=== PATIENT | female | born 1935 | race African-American/Black ===

== ENCOUNTER 2022-11-11 09:08 | Inpatient (IN) | payer OTHER ==
[2022-11-11] MEDS ORDERED: ONDANSETRON 4 MG/2 ML VIAL IVPUSH ONE (10:18)
[2022-11-11] MEDS ORDERED: ACETAMINOPHEN 1000 MG/100 ML BAG IVPB ONE ×2 (10:18→22:06)
[2022-11-11] MEDS ORDERED: ACETAMINOPHEN INJECTION 100 ML IVPB ONE ×2 (10:25→22:05)
[2022-11-11] MEDS ORDERED: ONDANSETRON 4 MG/2 ML VIAL ONE ×2 (10:25→22:05)
[2022-11-11 11:19] LABS: EPI CELLS 8 /uL (0-25.1); HYALINE CASTS 0 /uL (0-3.1); PH,URINE 6.5 (5.0-8.0); URINE APPEARANCE CLEAR; URINE BACTERIA 7 /uL (0-1359); URINE BILIRUBIN NEGATIVE (NEGATIVE); URINE COLOR YELLOW; URINE GLUCOSE (UA) NEGATIVE (NEGATIVE); URINE KETONE NEGATIVE (NEGATIVE); URINE LEUK ESTERASE NEGATIVE (NEGATIVE); URINE NITRITE NEGATIVE (NEGATIVE); URINE PROTEIN 1+ (NEGATIVE); URINE RBC 11 /uL (0-23.9); URINE UROBILINOGEN 0.2 mg/dL (0.2-1.0); URINE WBC 13 /uL (0-25.8)
[2022-11-11] MEDS ORDERED: HYDROmorphone HCl 2 MG/ML VIAL IVPUSH STA ×2 (11:23→15:14)
[2022-11-11] MEDS ORDERED: HYDROmorphone HCl 2 MG/ML VIAL ONE ×3 (11:27→18:29)
[2022-11-11 11:30] LABS: HEMATOCRIT 25.1 % (32.4-45.2); HEMOGLOBIN 7.6 GM/dL (10.7-15.3); MCH 24.1 pg (25.7-33.7); MCHC 30.2 g/dl (32.0-36.0); MEAN CELL VOLUME 79.9 fl (80-96); MEAN PLT VOLUME 10.5 fl (7.5-11.1); PLATELET COUNT 204 10^3/uL (134-434); RBC 3.15 M/mm3 (3.60-5.2); RDW 16.5 % (11.6-15.6); WHITE BLOOD COUNT 7.8 K/mm3 (4.0-10.0)
[2022-11-11 11:39] LABS: INR 0.96 (0.83-1.09); PROTHROMBIN TIME (PATIENT) 11.1 SEC (9.7-13.0)
[2022-11-11 11:40] LABS: ACTIVATED PTT 24.3 SECONDS (25.2-36.5)
[2022-11-11 12:17] LABS: BLOOD UREA NITROGEN 48.9 mg/dL (7-18)
[2022-11-11 12:20] LABS: CALCIUM 9.6 mg/dL (8.5-10.1)
[2022-11-11 12:21] LABS: BILIRUBIN,TOTAL 0.3 mg/dL (0.2-1); CREATININE 3.5 mg/dL (0.55-1.3); TOT PROT 7.9 g/dl (6.4-8.2)
[2022-11-11 12:22] LABS: ANISOCYTOSIS 0; HELMET CELLS 0; HOWELL-JOLLY BODIES 0; MACROCYTOSIS 0; OVALOCYTE 0; ROULEAU 0; SICKELED CELLS 0; TARGET CELLS 0; TEAR DROP CELLS 0; TOXIC GRANULATION 0
[2022-11-11] MEDS ORDERED: SODIUM CHLORIDE 1,000 ML IV STA (13:42)
[2022-11-11] MEDS: HYDROmorphone HCl 2 MG/ML VIAL IVPUSH PRN (18:37)
[2022-11-11] MEDS: D5-1/2NS+20 MEQ KCL - 20 MEQ/1,000 ML INFUS.BAG IV SCH (20:00)
[2022-11-11] MEDS ORDERED: HEPARIN NA (PORCINE) 5,000 UNITS/ML 1ML VIAL ONE (22:05)
[2022-11-11] MEDS: HEPARIN NA (PORCINE) 5,000 UNITS/ML 1ML VIAL SQ SCH (22:12)
[2022-11-11] MEDS: ONDANSETRON 4 MG/2 ML VIAL IVPUSH PRN (22:12)
[2022-11-11] MEDS ORDERED: SENNOSIDES/DOCUSATE COMBO (SENNA PLUS) TABLET (UD) PO ONE (22:40)
[2022-11-12] MEDS ORDERED: HYDROmorphone HCl 2 MG/ML VIAL ONE (01:22)
[2022-11-12] MEDS: HYDROmorphone HCl 2 MG/ML VIAL IVPUSH PRN ×2 (01:30→05:56)
[2022-11-12] MEDS: HEPARIN NA (PORCINE) 5,000 UNITS/ML 1ML VIAL SQ SCH ×3 (06:00→22:28)
[2022-11-12] MEDS ORDERED: HYDROmorphone HCl 2 MG/ML VIAL IVPB PRN ×2 (06:03→20:01)
[2022-11-12] MEDS ORDERED: MINERAL OIL ENEMA 133 ML ENEMA RC ONE ×2 (09:40→10:00)
[2022-11-12] MEDS ORDERED: PEG 3350/NA SULF BICARB CL/KCL 4000 ML SOLN.RECON PO ONE (11:00)
[2022-11-12 12:24] LABS: POTASSIUM 5.6 mmol/L (3.5-5.1)
[2022-11-12 12:31] LABS: ALBUMIN 3.3 g/dl (3.4-5.0); BLOOD UREA NITROGEN 46.6 mg/dL (7-18); CALCIUM 9.1 mg/dL (8.5-10.1); MAGNESIUM 2.1 mg/dL (1.8-2.4)
[2022-11-12 12:34] LABS: CREATININE 2.8 mg/dL (0.55-1.3)
[2022-11-12 12:36] LABS: BILIRUBIN,TOTAL 0.7 mg/dL (0.2-1); TOT PROT 7.2 g/dl (6.4-8.2)
[2022-11-12] MEDS: D5-1/2NS+20 MEQ KCL - 20 MEQ/1,000 ML INFUS.BAG IV SCH (15:19)
[2022-11-12] MEDS: ACETAMINOPHEN 325 MG TABLET (FP) PO PRN (16:06)
[2022-11-12] MEDS: DEXTROSE 5%-0.45% SALINE 1,000 ML IV SCH (16:09)
[2022-11-12] MEDS: ONDANSETRON 4 MG/2 ML VIAL IVPUSH PRN (16:13)
[2022-11-12 16:21] LABS: HEMATOCRIT 27.2 % (32.4-45.2); HEMOGLOBIN 8.3 GM/dL (10.7-15.3); MCHC 30.5 g/dl (32.0-36.0); MEAN PLT VOLUME 9.2 fl (7.5-11.1); PLATELET COUNT 178 10^3/uL (134-434); RBC 3.45 M/mm3 (3.60-5.2); RDW 16.6 % (11.6-15.6); WHITE BLOOD COUNT 11.5 K/mm3 (4.0-10.0)
[2022-11-12] MEDS ORDERED: ACETAMINOPHEN 1000 MG/100 ML BAG IVPB ONE (18:03)
[2022-11-13] MEDS: DEXTROSE 5%-0.45% SALINE 1,000 ML IV SCH (05:04)
[2022-11-13] MEDS: HEPARIN NA (PORCINE) 5,000 UNITS/ML 1ML VIAL SQ SCH ×2 (05:05→21:46)
[2022-11-13] MEDS: ACETAMINOPHEN 325 MG TABLET (FP) PO PRN (06:40)
[2022-11-13 09:53] LABS: HEMATOCRIT 23.4 % (32.4-45.2); HEMOGLOBIN 7.3 GM/dL (10.7-15.3); MCH 24.5 pg (25.7-33.7); MCHC 31.2 g/dl (32.0-36.0); MEAN CELL VOLUME 78.3 fl (80-96); MEAN PLT VOLUME 9.3 fl (7.5-11.1); PLATELET COUNT 158 10^3/uL (134-434); RBC 2.99 M/mm3 (3.60-5.2); WHITE BLOOD COUNT 9.2 K/mm3 (4.0-10.0)
[2022-11-13 10:11] LABS: POTASSIUM 4.5 mmol/L (3.5-5.1)
[2022-11-13 10:17] LABS: ALBUMIN 2.7 g/dl (3.4-5.0); BLOOD UREA NITROGEN 42.3 mg/dL (7-18); CALCIUM 8.6 mg/dL (8.5-10.1)
[2022-11-13 10:21] LABS: CREATININE 2.5 mg/dL (0.55-1.3)
[2022-11-13 10:23] LABS: BILIRUBIN,TOTAL 0.6 mg/dL (0.2-1)
[2022-11-13] MEDS ORDERED: CEFTRIAXONE 1 GM in DEXTROSE 5%-WATER - 50 ML IVPB SCH (11:15)
[2022-11-13 11:24] LABS: ERYTHROCYTE SEDIMENTATION RATE 38 mm/hr (0-30)
[2022-11-13] MEDS ORDERED: SODIUM CHLORIDE 1,000 ML IV SCH ×3 (11:30→17:22)
[2022-11-13] MEDS ORDERED: ACETAMINOPHEN 1000 MG/100 ML BAG IVPB ONE ×3 (12:00→16:45)
[2022-11-13] MEDS ORDERED: BUPIVACAINE HCL/PF 0.25% (2.5MG/ML) 10 ML VIAL ONE (12:30)
[2022-11-13] MEDS ORDERED: INDOCYANINE GREEN 25 MG/10 ML VIAL IVPUSH ONE (12:55)
[2022-11-13] MEDS ORDERED: PROPOFOL 20 ML ONE (13:29)
[2022-11-13] MEDS ORDERED: ROCURONIUM BROMIDE 50 MG/5 ML SYRINGE ONE ×3 (13:30→15:38)
[2022-11-13] MEDS ORDERED: PIPERACILLIN/TAZOBACTAM 3.375 GM VIAL IVPB ONE ×2 (14:39→14:43)
[2022-11-13] MEDS ORDERED: HYDROmorphone HCl 2 MG/ML VIAL ONE (15:20)
[2022-11-13] MEDS ORDERED: SUGAMMADEX SODIUM 200 MG/2 ML VIAL ONE (15:54)
[2022-11-13] MEDS ORDERED: ONDANSETRON 4 MG/2 ML VIAL ONE (16:21)
[2022-11-13] MEDS ORDERED: ACETAMINOPHEN INJECTION 100 ML IVPB ONE (16:44)
[2022-11-13] MEDS ORDERED: HYDROmorphone *PCA* 10MG/50ML DISP.SYRIN PCA SCH (16:45)
[2022-11-13] MEDS ORDERED: LACTATED RINGERS SOLUTION 1,000 ML IV SCH (16:45)
[2022-11-13] MEDS ORDERED: HYDROmorphone *PCA* 10MG/50ML DISP.SYRIN ONE (17:05)
[2022-11-13] MEDS ORDERED: ONDANSETRON 4 MG/2 ML VIAL IVPUSH PRN (17:22)
[2022-11-13] MEDS: HYDROmorphone *PCA* 10MG/50ML DISP.SYRIN PCA SCH (19:00)
[2022-11-13 20:22] LABS: HEMATOCRIT 36.4 % (32.4-45.2); HEMOGLOBIN 11.4 GM/dL (10.7-15.3); MCHC 31.3 g/dl (32.0-36.0); MEAN CELL VOLUME 80.1 fl (80-96); MEAN PLT VOLUME 9.4 fl (7.5-11.1); PLATELET COUNT 172 10^3/uL (134-434); RBC 4.54 M/mm3 (3.60-5.2); RDW 16.4 % (11.6-15.6); WHITE BLOOD COUNT 8.1 K/mm3 (4.0-10.0)
[2022-11-13 20:24] LABS: POTASSIUM 4.7 mmol/L (3.5-5.1)
[2022-11-13 20:25] LABS: ALBUMIN 2.5 g/dl (3.4-5.0); CALCIUM 8.9 mg/dL (8.5-10.1)
[2022-11-13 20:27] LABS: BLOOD UREA NITROGEN 43.1 mg/dL (7-18)
[2022-11-13 20:29] LABS: CREATININE 2.6 mg/dL (0.55-1.3)
[2022-11-13 20:31] LABS: BILIRUBIN,TOTAL 1.2 mg/dL (0.2-1); TOT PROT 5.6 g/dl (6.4-8.2)
[2022-11-13 21:18] LABS: ANISOCYTOSIS 1+; MACROCYTOSIS 0; OVALOCYTE 1+
[2022-11-13] MEDS: MUPIROCIN 2% TOPICAL OINTMENT FOR DECOLONIZATION NS SCH (21:46)
[2022-11-13] MEDS ORDERED: MUPIROCIN 2% TOPICAL OINTMENT FOR DECOLONIZATION NS SCH ×2 (22:00)
[2022-11-13] MEDS ORDERED: CHLORHEXIDINE GLUCONATE 4% CLEANSER FOR DECOLONIZATION TP SCH ×2 (22:00)
[2022-11-13] MEDS: PIPERACILLIN/TAZOB 3.375 GM 3.375 GM in DEXTROSE 5%-WATER - 50 ML IVPB SCH (22:35)
[2022-11-13] MEDS: CHLORHEXIDINE GLUCONATE 4% CLEANSER FOR DECOLONIZATION TP SCH (22:36)
[2022-11-14] MEDS: PIPERACILLIN/TAZOB 3.375 GM 3.375 GM in DEXTROSE 5%-WATER - 50 ML IVPB SCH ×2 (02:55→09:16)
[2022-11-14] MEDS: HEPARIN NA (PORCINE) 5,000 UNITS/ML 1ML VIAL SQ SCH ×3 (06:04→21:43)
[2022-11-14 07:25] LABS: POTASSIUM 5.2 mmol/L (3.5-5.1)
[2022-11-14 07:29] LABS: BLOOD UREA NITROGEN 43.3 mg/dL (7-18); CALCIUM 8.6 mg/dL (8.5-10.1)
[2022-11-14 07:30] LABS: ALBUMIN 2.2 g/dl (3.4-5.0)
[2022-11-14 07:33] LABS: CREATININE 2.7 mg/dL (0.55-1.3)
[2022-11-14 07:34] LABS: BILIRUBIN,TOTAL 0.7 mg/dL (0.2-1); TOT PROT 5.2 g/dl (6.4-8.2)
[2022-11-14 07:54] LABS: BASO % 0.2 % (0-2.0); EOS % 0.1 % (0-4.5); HEMATOCRIT 32.4 % (32.4-45.2); HEMOGLOBIN 10.2 GM/dL (10.7-15.3); LYMPH % 7.3 % (8-40); MCH 25.2 pg (25.7-33.7); MCHC 31.6 g/dl (32.0-36.0); MEAN CELL VOLUME 79.7 fl (80-96); MEAN PLT VOLUME 9.3 fl (7.5-11.1); MONO % 4.4 % (3.8-10.2); PLATELET COUNT 153 10^3/uL (134-434); RBC 4.06 M/mm3 (3.60-5.2); RDW 16.8 % (11.6-15.6); WHITE BLOOD COUNT 7.4 K/mm3 (4.0-10.0)
[2022-11-14] MEDS ORDERED: LEVOTHYROXINE SODIUM 100 MCG 5 ML VIAL IVPUSH ONE ×2 (08:00)
[2022-11-14] MEDS ORDERED: ACETAMINOPHEN 1000 MG/100 ML BAG IVPB PRN (08:00)
[2022-11-14] MEDS: DEXTROSE 5%-NORMAL SALINE 1,000 ML IV SCH (09:15)
[2022-11-14] MEDS: PANTOPRAZOLE SODIUM 40 MG VIAL IVPUSH SCH (09:16)
[2022-11-14] MEDS: MUPIROCIN 2% TOPICAL OINTMENT FOR DECOLONIZATION NS SCH ×2 (09:17→22:05)
[2022-11-14] MEDS: PIPERACILLIN/TAZOB 2.25 GM 2.25 GM in DEXTROSE 5%-WATER - 50 ML IVPB SCH ×2 (15:14→21:43)
[2022-11-14] MEDS: HYDROmorphone *PCA* 10MG/50ML DISP.SYRIN PCA SCH (19:00)
[2022-11-14] MEDS ORDERED: ONDANSETRON 4 MG/2 ML VIAL IVPUSH PRN (19:54)
[2022-11-14] MEDS: SODIUM CHLORIDE 1,000 ML IV SCH (21:45)
[2022-11-14] MEDS: CHLORHEXIDINE GLUCONATE 4% CLEANSER FOR DECOLONIZATION TP SCH (22:05)
[2022-11-15] MEDS: PIPERACILLIN/TAZOB 2.25 GM 2.25 GM in DEXTROSE 5%-WATER - 50 ML IVPB SCH ×4 (03:19→21:07)
[2022-11-15] MEDS: HEPARIN NA (PORCINE) 5,000 UNITS/ML 1ML VIAL SQ SCH ×3 (06:18→21:08)
[2022-11-15] MEDS: DEXTROSE 5%-NORMAL SALINE 1,000 ML IV SCH (08:24)
[2022-11-15] MEDS: MUPIROCIN 2% TOPICAL OINTMENT FOR DECOLONIZATION NS SCH ×2 (09:17→22:00)
[2022-11-15] MEDS: PANTOPRAZOLE SODIUM 40 MG VIAL IVPUSH SCH (09:18)
[2022-11-15 12:31] LABS: BASO % 0.1 % (0-2.0); EOS % 1.9 % (0-4.5); HEMATOCRIT 29.9 % (32.4-45.2); HEMOGLOBIN 9.3 GM/dL (10.7-15.3); MCH 25.1 pg (25.7-33.7); MEAN PLT VOLUME 8.9 fl (7.5-11.1); MONO % 4.6 % (3.8-10.2); NEUT % 87.4 % (42.8-82.8); PLATELET COUNT 184 10^3/uL (134-434); RBC 3.69 M/mm3 (3.60-5.2); RDW 16.6 % (11.6-15.6); WHITE BLOOD COUNT 8.3 K/mm3 (4.0-10.0)
[2022-11-15 12:49] LABS: POTASSIUM 4.5 mmol/L (3.5-5.1)
[2022-11-15 12:53] LABS: ALBUMIN 2.2 g/dl (3.4-5.0); BLOOD UREA NITROGEN 39.5 mg/dL (7-18)
[2022-11-15 12:55] LABS: CREATININE 2.6 mg/dL (0.55-1.3)
[2022-11-15 12:57] LABS: BILIRUBIN,TOTAL 0.6 mg/dL (0.2-1); TOT PROT 5.4 g/dl (6.4-8.2)
[2022-11-15] MEDS: HYDROmorphone *PCA* 10MG/50ML DISP.SYRIN PCA SCH (20:51)
[2022-11-15] MEDS: SODIUM CHLORIDE 1,000 ML IV SCH (21:07)
[2022-11-15] MEDS: CHLORHEXIDINE GLUCONATE 4% CLEANSER FOR DECOLONIZATION TP SCH (22:00)
[2022-11-16] MEDS: PIPERACILLIN/TAZOB 2.25 GM 2.25 GM in DEXTROSE 5%-WATER - 50 ML IVPB SCH ×4 (02:12→21:07)
[2022-11-16] MEDS: HEPARIN NA (PORCINE) 5,000 UNITS/ML 1ML VIAL SQ SCH ×3 (07:37→21:07)
[2022-11-16] MEDS: PANTOPRAZOLE SODIUM 40 MG VIAL IVPUSH SCH (09:11)
[2022-11-16] MEDS: DEXTROSE 5%-NORMAL SALINE 1,000 ML IV SCH (09:40)
[2022-11-16] MEDS: ACETAMINOPHEN 1000 MG/100 ML BAG IVPB SCH ×3 (10:39→20:43)
[2022-11-16] MEDS: MUPIROCIN 2% TOPICAL OINTMENT FOR DECOLONIZATION NS SCH ×2 (10:40→21:07)
[2022-11-16] MEDS: DOCUSATE SODIUM 100 MG CAPSULE (FP) PO SCH ×2 (14:13→21:07)
[2022-11-16] MEDS: traMADol HCL 50 MG TABLET PO PRN (20:44)
[2022-11-16] MEDS: CHLORHEXIDINE GLUCONATE 4% CLEANSER FOR DECOLONIZATION TP SCH (21:07)
[2022-11-17] MEDS: PIPERACILLIN/TAZOB 2.25 GM 2.25 GM in DEXTROSE 5%-WATER - 50 ML IVPB SCH ×4 (02:12→21:36)
[2022-11-17] MEDS: ACETAMINOPHEN 1000 MG/100 ML BAG IVPB SCH (02:12)
[2022-11-17] MEDS: HEPARIN NA (PORCINE) 5,000 UNITS/ML 1ML VIAL SQ SCH ×4 (06:04→21:36)
[2022-11-17] MEDS: DOCUSATE SODIUM 100 MG CAPSULE (FP) PO SCH ×3 (06:04→21:36)
[2022-11-17] MEDS: traMADol HCL 50 MG TABLET PO PRN (07:52)
[2022-11-17 08:00] LABS: POTASSIUM 3.9 mmol/L (3.5-5.1)
[2022-11-17 08:05] LABS: ALBUMIN 2.1 g/dl (3.4-5.0); BLOOD UREA NITROGEN 30.8 mg/dL (7-18); CALCIUM 8.9 mg/dL (8.5-10.1)
[2022-11-17 08:08] LABS: CREATININE 2.3 mg/dL (0.55-1.3)
[2022-11-17 08:10] LABS: TOT PROT 5.2 g/dl (6.4-8.2)
[2022-11-17 08:11] LABS: BILIRUBIN,TOTAL 0.3 mg/dL (0.2-1)
[2022-11-17 08:23] LABS: HEMATOCRIT 27.1 % (32.4-45.2); HEMOGLOBIN 8.3 GM/dL (10.7-15.3); MCH 24.8 pg (25.7-33.7); MCHC 30.7 g/dl (32.0-36.0); MEAN CELL VOLUME 80.8 fl (80-96); MEAN PLT VOLUME 9.1 fl (7.5-11.1); PLATELET COUNT 207 10^3/uL (134-434); RBC 3.36 M/mm3 (3.60-5.2); RDW 15.9 % (11.6-15.6); WHITE BLOOD COUNT 6.3 K/mm3 (4.0-10.0)
[2022-11-17] MEDS: PANTOPRAZOLE SODIUM 40 MG VIAL IVPUSH SCH (09:13)
[2022-11-17] MEDS: DEXTROSE 5%-NORMAL SALINE 1,000 ML IV SCH (09:17)
[2022-11-17] MEDS: MUPIROCIN 2% TOPICAL OINTMENT FOR DECOLONIZATION NS SCH (09:17)
[2022-11-17] MEDS: ACETAMINOPHEN 500 MG TABLET (FP) PO SCH ×3 (10:41→21:37)
[2022-11-17] MEDS: HYDROmorphone *PCA* 10MG/50ML DISP.SYRIN PCA SCH (14:45)
[2022-11-18] MEDS: traMADol HCL 50 MG TABLET PO PRN ×2 (02:30→16:30)
[2022-11-18] MEDS: PIPERACILLIN/TAZOB 2.25 GM 2.25 GM in DEXTROSE 5%-WATER - 50 ML IVPB SCH ×2 (02:30→09:59)
[2022-11-18] MEDS: ACETAMINOPHEN 500 MG TABLET (FP) PO SCH ×4 (04:36→21:40)
[2022-11-18] MEDS: DOCUSATE SODIUM 100 MG CAPSULE (FP) PO SCH ×3 (05:51→21:14)
[2022-11-18] MEDS: HEPARIN NA (PORCINE) 5,000 UNITS/ML 1ML VIAL SQ SCH ×3 (05:51→21:16)
[2022-11-18] MEDS ORDERED: PIPERACILLIN/TAZOBACTAM 2.25 GM VIAL IVPB ONE (09:09)
[2022-11-18] MEDS: DEXTROSE 5%-NORMAL SALINE 1,000 ML IV SCH (11:28)
[2022-11-18] MEDS: PANTOPRAZOLE SODIUM 40 MG VIAL IVPUSH SCH (12:03)
[2022-11-19] MEDS: ACETAMINOPHEN 500 MG TABLET (FP) PO SCH ×3 (04:12→10:14)
[2022-11-19] MEDS: HEPARIN NA (PORCINE) 5,000 UNITS/ML 1ML VIAL SQ SCH ×3 (05:56→21:40)
[2022-11-19] MEDS: DOCUSATE SODIUM 100 MG CAPSULE (FP) PO SCH ×3 (05:56→21:40)
[2022-11-19] MEDS: traMADol HCL 50 MG TABLET PO PRN (06:20)
[2022-11-19] MEDS: DEXTROSE 5%-NORMAL SALINE 1,000 ML IV SCH ×2 (07:08→19:45)
[2022-11-19 08:18] LABS: HEMATOCRIT 33.3 % (32.4-45.2); HEMOGLOBIN 10.7 GM/dL (10.7-15.3); MCH 25.5 pg (25.7-33.7); MEAN CELL VOLUME 79.5 fl (80-96); MEAN PLT VOLUME 8.4 fl (7.5-11.1); PLATELET COUNT 335 10^3/uL (134-434); RBC 4.19 M/mm3 (3.60-5.2); RDW 15.9 % (11.6-15.6); WHITE BLOOD COUNT 7.4 K/mm3 (4.0-10.0)
[2022-11-19 08:30] LABS: POTASSIUM 3.9 mmol/L (3.5-5.1)
[2022-11-19 08:32] LABS: CALCIUM 9.5 mg/dL (8.5-10.1)
[2022-11-19 08:33] LABS: BLOOD UREA NITROGEN 22.8 mg/dL (7-18)
[2022-11-19 08:36] LABS: CREATININE 2.1 mg/dL (0.55-1.3)
[2022-11-19 08:37] LABS: TOT PROT 6.4 g/dl (6.4-8.2)
[2022-11-19 08:38] LABS: BILIRUBIN,TOTAL 0.4 mg/dL (0.2-1)
[2022-11-19 08:44] LABS: ALBUMIN 2.5 g/dl (3.4-5.0)
[2022-11-19] MEDS: PANTOPRAZOLE SODIUM 40 MG VIAL IVPUSH SCH (10:02)
[2022-11-19] MEDS: ONDANSETRON 4 MG/2 ML VIAL IVPB SCH ×4 (10:02→21:39)
[2022-11-19 12:31] VITALS: BMI 26.1
[2022-11-19] MEDS ORDERED: METOCLOPRAMIDE HCL INJECTION 10 MG/2 ML VIAL IVPB SCH (14:00)
[2022-11-19] MEDS ORDERED: ONDANSETRON 4 MG/2 ML VIAL IVPB PRN (23:00)
[2022-11-20] MEDS ORDERED: ACETAMINOPHEN 1000 MG/100 ML BAG IVPB ONE ×2 (02:39→07:56)
[2022-11-20] MEDS: DOCUSATE SODIUM 100 MG CAPSULE (FP) PO SCH ×3 (06:47→22:10)
[2022-11-20] MEDS: HEPARIN NA (PORCINE) 5,000 UNITS/ML 1ML VIAL SQ SCH ×3 (06:47→22:10)
[2022-11-20] MEDS: LEVOTHYROXINE NA 125 MCG TABLET (FP) PO SCH (06:47)
[2022-11-20] MEDS: ONDANSETRON *ODT* 4 MG TABLET SL PRN ×2 (08:00→16:45)
[2022-11-20] MEDS: traMADol HCL 50 MG TABLET PO PRN ×2 (13:30→22:08)
[2022-11-20] MEDS ORDERED: ACETAMINOPHEN 500 MG TABLET (FP) PO ONE ×2 (16:24)
[2022-11-20 22:26] VITALS: RESP 20
[2022-11-21] MEDS: ACETAMINOPHEN 500 MG TABLET (FP) PO SCH ×4 (02:03→17:30)
[2022-11-21] MEDS: DOCUSATE SODIUM 100 MG CAPSULE (FP) PO SCH ×3 (05:36→22:07)
[2022-11-21] MEDS: HEPARIN NA (PORCINE) 5,000 UNITS/ML 1ML VIAL SQ SCH ×3 (05:36→22:07)
[2022-11-21] MEDS: LEVOTHYROXINE NA 125 MCG TABLET (FP) PO SCH (06:32)
[2022-11-21] MEDS: traMADol HCL 50 MG TABLET PO PRN ×2 (09:45→22:18)
[2022-11-22] MEDS: ACETAMINOPHEN 500 MG TABLET (FP) PO SCH ×4 (00:41→12:10)
[2022-11-22] MEDS: HEPARIN NA (PORCINE) 5,000 UNITS/ML 1ML VIAL SQ SCH (06:35)
[2022-11-22] MEDS: DOCUSATE SODIUM 100 MG CAPSULE (FP) PO SCH (06:36)
[2022-11-22] MEDS: LEVOTHYROXINE NA 125 MCG TABLET (FP) PO SCH (06:36)
[2022-11-22 10:24] LABS: POTASSIUM 4.4 mmol/L (3.5-5.1)
[2022-11-22 10:26] LABS: CALCIUM 9.7 mg/dL (8.5-10.1)
[2022-11-22 10:27] LABS: ALBUMIN 2.8 g/dl (3.4-5.0); BLOOD UREA NITROGEN 27.8 mg/dL (7-18)
[2022-11-22 10:30] LABS: CREATININE 2.2 mg/dL (0.55-1.3)
[2022-11-22 10:32] LABS: BILIRUBIN,TOTAL 0.3 mg/dL (0.2-1); TOT PROT 6.8 g/dl (6.4-8.2)
[2022-11-22 14:03] VITALS: BP 145/86; PULSE 77; TEMP 9.3
== END 2022-11-22 14:09 | DRG 329 ==
LOC: JER 09:08 → JERBED 16:51 → J5S 11-12 02:24 → J2C 11-13 15:48 → JICU 11-13 18:30 → J8W 11-17 13:51
PROVIDERS: ADMIT Family Medicine; ATTEND Family Medicine
PROC: 0DTG0ZZ Resection of Left Large Intestine, Open Approach (ICD-10-PCS; principal; 2022-11-13 12:00)
PROC: 0D1L0Z4 Bypass Transverse Colon to Cutaneous, Open Approach (ICD-10-PCS; 2022-11-13 12:00)
DX: K43.4 Parastomal hernia with gangrene (principal); K56.2 Volvulus; K55.8 Other vascular disorders of intestine; N17.9 Acute kidney failure, unspecified; F05 Delirium due to known physiological condition; E78.5 Hyperlipidemia, unspecified; I12.9 Hypertensive chronic kidney disease with stage 1 through stage 4 chronic kidney disease, or unspecified chronic kidney disease; N18.9 Chronic kidney disease, unspecified; D64.9 Anemia, unspecified; R11.2 Nausea with vomiting, unspecified; K59.00 Constipation, unspecified; E03.9 Hypothyroidism, unspecified; Z53.31 Laparoscopic surgical procedure converted to open procedure; Z93.3 Colostomy status
CPT/HCPCS: 36415; 36430; 74018-TC-FY; 74176-TC; 80053; 81003; 82570; 82728; 82962; 83540; 83550; 83605; 83690; 83735; 84300; 84439; 84443; 85025; 85027; 85610; 85651; 85730; 86140; 86850; 86900; 86901; 87086; 87635; 88307-TC; 93005; 93010; 93306-TC; 94760; 97116-GP; 97161-GP; 99285-25; J1644; P9038; P9058; Q0162

== ENCOUNTER 2022-11-24 03:24 | Inpatient (IN) | payer OTHER ==
[2022-11-24] MEDS ORDERED: ONDANSETRON 4 MG/2 ML VIAL IVPUSH ONE (03:41)
[2022-11-24] MEDS ORDERED: ACETAMINOPHEN 1000 MG/100 ML BAG IVPB ONE (03:41)
[2022-11-24] MEDS ORDERED: ACETAMINOPHEN INJECTION 100 ML IVPB ONE (03:50)
[2022-11-24] MEDS ORDERED: ONDANSETRON 4 MG/2 ML VIAL ONE (03:50)
[2022-11-24 04:15] LABS: HEMOGLOBIN 10.6 GM/dL (10.7-15.3); INR 1.01 (0.83-1.09); MCH 24.9 pg (25.7-33.7); MCHC 31.1 g/dl (32.0-36.0); MEAN CELL VOLUME 80.3 fl (80-96); MEAN PLT VOLUME 7.8 fl (7.5-11.1); PLATELET COUNT 471 10^3/uL (134-434); PROTHROMBIN TIME (PATIENT) 11.7 SEC (9.7-13.0); RBC 4.23 M/mm3 (3.60-5.2); RDW 16.4 % (11.6-15.6); WHITE BLOOD COUNT 14.1 K/mm3 (4.0-10.0)
[2022-11-24 04:18] LABS: ACTIVATED PTT 26.5 SECONDS (25.2-36.5)
[2022-11-24 04:19] LABS: POTASSIUM 4.3 mmol/L (3.5-5.1)
[2022-11-24 04:22] LABS: BLOOD UREA NITROGEN 33.6 mg/dL (7-18); CALCIUM 9.6 mg/dL (8.5-10.1); MAGNESIUM 2.3 mg/dL (1.8-2.4)
[2022-11-24 04:25] LABS: CREATININE 2.3 mg/dL (0.55-1.3)
[2022-11-24 04:26] LABS: BILIRUBIN,TOTAL 0.5 mg/dL (0.2-1)
[2022-11-24 04:27] LABS: TOT PROT 6.9 g/dl (6.4-8.2)
[2022-11-24 05:33] LABS: ANISOCYTOSIS 2+; MACROCYTOSIS 0; OVALOCYTE 2+; TEAR DROP CELLS 1+
[2022-11-24] MEDS ORDERED: SODIUM CHLORIDE 0.9% 500 ML INFUS.BAG IV ONE (06:34)
[2022-11-24] MEDS ORDERED: LEVOTHYROXINE NA 100 MCG TABLET (FP) ONE (11:43)
[2022-11-24] MEDS ORDERED: LEVOTHYROXINE NA 25 MCG TABLET (FP) ONE (11:44)
[2022-11-24] MEDS ORDERED: HYDROmorphone HCl 2 MG/ML VIAL ONE ×2 (11:44→19:10)
[2022-11-24] MEDS: LEVOTHYROXINE NA 125 MCG TABLET (FP) PO SCH (11:53)
[2022-11-24] MEDS: D5-1/2NS+20 MEQ KCL - 20 MEQ/1,000 ML INFUS.BAG IV SCH (11:53)
[2022-11-24] MEDS: HYDROmorphone HCl 2 MG/ML VIAL IVPB PRN ×2 (12:00→19:14)
[2022-11-24] MEDS ORDERED: HEPARIN NA (PORCINE) 5,000 UNITS/ML 1ML VIAL ONE ×2 (13:20→21:28)
[2022-11-24] MEDS: HEPARIN NA (PORCINE) 5,000 UNITS/ML 1ML VIAL SQ SCH ×2 (13:27→21:39)
[2022-11-24] MEDS ORDERED: PIPERACILLIN/TAZOB 2.25 GM 2.25 GM/50 ML BAG IVPB ONE (17:12)
[2022-11-24] MEDS: PIPERACILLIN/TAZOB 2.25 GM 2.25 GM in DEXTROSE 5%-WATER - 50 ML IVPB SCH (17:30)
[2022-11-25] MEDS: PIPERACILLIN/TAZOB 2.25 GM 2.25 GM in DEXTROSE 5%-WATER - 50 ML IVPB SCH ×3 (02:05→17:56)
[2022-11-25 03:13] VITALS: BMI 25.7
[2022-11-25] MEDS ORDERED: ACETAMINOPHEN 1000 MG/100 ML BAG IVPB PRN (05:55)
[2022-11-25] MEDS: HEPARIN NA (PORCINE) 5,000 UNITS/ML 1ML VIAL SQ SCH ×3 (06:30→22:47)
[2022-11-25] MEDS: D5-1/2NS+20 MEQ KCL - 20 MEQ/1,000 ML INFUS.BAG IV SCH ×3 (06:33→18:29)
[2022-11-25] MEDS: LEVOTHYROXINE NA 125 MCG TABLET (FP) PO SCH (07:31)
[2022-11-25] MEDS: metoPROLOL SUCCINATE 25 MG TAB.SR.24H (FP) PO SCH (09:22)
[2022-11-25 09:45] LABS: BASO % 0.2 % (0-2.0); EOS % 0.8 % (0-4.5); HEMATOCRIT 29.5 % (32.4-45.2); HEMOGLOBIN 9.3 GM/dL (10.7-15.3); LYMPH % 5.2 % (8-40); MCH 25.3 pg (25.7-33.7); MCHC 31.7 g/dl (32.0-36.0); MEAN CELL VOLUME 79.9 fl (80-96); MEAN PLT VOLUME 7.7 fl (7.5-11.1); MONO % 6.2 % (3.8-10.2); NEUT % 87.6 % (42.8-82.8); PLATELET COUNT 432 10^3/uL (134-434); RBC 3.69 M/mm3 (3.60-5.2); RDW 16.1 % (11.6-15.6); WHITE BLOOD COUNT 10.1 K/mm3 (4.0-10.0)
[2022-11-25 09:59] LABS: POTASSIUM 4.8 mmol/L (3.5-5.1)
[2022-11-25 10:21] LABS: BILIRUBIN,TOTAL 0.3 mg/dL (0.2-1)
[2022-11-25 10:29] LABS: ALBUMIN 2.7 g/dl (3.4-5.0); CALCIUM 9.2 mg/dL (8.5-10.1)
[2022-11-25 10:30] LABS: MAGNESIUM 2.2 mg/dL (1.8-2.4)
[2022-11-25 10:32] LABS: CREATININE 2.4 mg/dL (0.55-1.3); PHOSPHOROUS 2.9 mg/dL (2.5-4.9)
[2022-11-25 10:33] LABS: TOT PROT 6.4 g/dl (6.4-8.2)
[2022-11-25 10:46] LABS: EPI CELLS 17 /uL (0-25.1); HYALINE CASTS 1 /uL (0-3.1); URINE APPEARANCE CLEAR; URINE BACTERIA 10 /uL (0-1359); URINE BILIRUBIN NEGATIVE (NEGATIVE); URINE COLOR YELLOW; URINE GLUCOSE (UA) NEGATIVE (NEGATIVE); URINE KETONE NEGATIVE (NEGATIVE); URINE LEUK ESTERASE NEGATIVE (NEGATIVE); URINE NITRITE NEGATIVE (NEGATIVE); URINE PROTEIN 2+ (NEGATIVE); URINE RBC 21 /uL (0-23.9); URINE UROBILINOGEN 0.2 mg/dL (0.2-1.0); URINE WBC 20 /uL (0-25.8)
[2022-11-25] MEDS ORDERED: ONDANSETRON 4 MG TABLET PO PRN (15:42)
[2022-11-25] MEDS ORDERED: HYDROmorphone HCl 2 MG/ML VIAL IVPB ONE (15:55)
[2022-11-25] MEDS: ONDANSETRON 4 MG/2 ML VIAL IVPUSH PRN ×2 (16:05→21:45)
[2022-11-25] MEDS: ACETAMINOPHEN 1000 MG/100 ML BAG IVPB PRN ×2 (16:26→22:29)
[2022-11-26] MEDS: PIPERACILLIN/TAZOB 2.25 GM 2.25 GM in DEXTROSE 5%-WATER - 50 ML IVPB SCH ×3 (01:29→18:25)
[2022-11-26] MEDS: ACETAMINOPHEN 1000 MG/100 ML BAG IVPB PRN (03:31)
[2022-11-26] MEDS: D5-1/2NS+20 MEQ KCL - 20 MEQ/1,000 ML INFUS.BAG IV SCH (05:27)
[2022-11-26] MEDS ORDERED: TRIMETHOBENZAMIDE HCL 200MG/2ML INJ IM ONE (05:28)
[2022-11-26] MEDS: HEPARIN NA (PORCINE) 5,000 UNITS/ML 1ML VIAL SQ SCH ×3 (06:05→21:25)
[2022-11-26] MEDS: ONDANSETRON 4 MG/2 ML VIAL IVPUSH PRN ×2 (06:05→09:46)
[2022-11-26] MEDS: LEVOTHYROXINE NA 125 MCG TABLET (FP) PO SCH (06:05)
[2022-11-26 09:36] LABS: HEMATOCRIT 31.4 % (32.4-45.2); HEMOGLOBIN 9.8 GM/dL (10.7-15.3); MCH 25.3 pg (25.7-33.7); MCHC 31.4 g/dl (32.0-36.0); MEAN CELL VOLUME 80.7 fl (80-96); MEAN PLT VOLUME 7.9 fl (7.5-11.1); PLATELET COUNT 513 10^3/uL (134-434); RBC 3.89 M/mm3 (3.60-5.2); RDW 16.3 % (11.6-15.6); WHITE BLOOD COUNT 11.4 K/mm3 (4.0-10.0)
[2022-11-26 09:59] LABS: POTASSIUM 4.9 mmol/L (3.5-5.1)
[2022-11-26] MEDS ORDERED: FAMOTIDINE 20 MG/50 ML IVPB 20 MG/50 ML MG IVPB SCH (10:00)
[2022-11-26 10:06] LABS: ALBUMIN 2.8 g/dl (3.4-5.0); BLOOD UREA NITROGEN 30.3 mg/dL (7-18); CALCIUM 9.4 mg/dL (8.5-10.1)
[2022-11-26 10:09] LABS: CREATININE 2.6 mg/dL (0.55-1.3)
[2022-11-26 10:11] LABS: BILIRUBIN,TOTAL 0.4 mg/dL (0.2-1); TOT PROT 6.8 g/dl (6.4-8.2)
[2022-11-26] MEDS: metoPROLOL SUCCINATE 25 MG TAB.SR.24H (FP) PO SCH (10:23)
[2022-11-26] MEDS: FAMOTIDINE 20 MG/50 ML IVPB 20 MG/50 ML MG IVPB SCH (11:29)
[2022-11-26 12:36] LABS: MAGNESIUM 2.5 mg/dL (1.8-2.4)
[2022-11-26 12:40] LABS: PHOSPHOROUS 2.8 mg/dL (2.5-4.9)
[2022-11-26] MEDS ORDERED: SODIUM CHLORIDE 0.45% 1,000 ML IV SCH (14:15)
[2022-11-26] MEDS: DEXTROSE 5%-NORMAL SALINE 1,000 ML IV SCH (19:21)
[2022-11-27] MEDS: PIPERACILLIN/TAZOB 2.25 GM 2.25 GM in DEXTROSE 5%-WATER - 50 ML IVPB SCH ×3 (01:43→17:28)
[2022-11-27] MEDS: ACETAMINOPHEN 1000 MG/100 ML BAG IVPB PRN ×2 (03:49→09:37)
[2022-11-27] MEDS: HEPARIN NA (PORCINE) 5,000 UNITS/ML 1ML VIAL SQ SCH ×3 (06:24→21:42)
[2022-11-27] MEDS: LEVOTHYROXINE NA 125 MCG TABLET (FP) PO SCH (06:24)
[2022-11-27] MEDS: DEXTROSE 5%-NORMAL SALINE 1,000 ML IV SCH (06:26)
[2022-11-27] MEDS: ONDANSETRON 4 MG/2 ML VIAL IVPUSH PRN (09:37)
[2022-11-27] MEDS: metoPROLOL SUCCINATE 25 MG TAB.SR.24H (FP) PO SCH (09:44)
[2022-11-27 11:00] LABS: BASO % 0.4 % (0-2.0); EOS % 1.1 % (0-4.5); HEMATOCRIT 28.1 % (32.4-45.2); LYMPH % 6.6 % (8-40); MCH 25.8 pg (25.7-33.7); MEAN CELL VOLUME 80.5 fl (80-96); MEAN PLT VOLUME 7.8 fl (7.5-11.1); MONO % 6.9 % (3.8-10.2); PLATELET COUNT 468 10^3/uL (134-434); RBC 3.49 M/mm3 (3.60-5.2); RDW 16.2 % (11.6-15.6)
[2022-11-27 11:29] LABS: POTASSIUM 4.8 mmol/L (3.5-5.1)
[2022-11-27 11:52] LABS: BLOOD UREA NITROGEN 23.5 mg/dL (7-18); CALCIUM 9.2 mg/dL (8.5-10.1); MAGNESIUM 2.3 mg/dL (1.8-2.4)
[2022-11-27 11:55] LABS: CREATININE 2.3 mg/dL (0.55-1.3); PHOSPHOROUS 2.7 mg/dL (2.5-4.9)
[2022-11-27 12:05] LABS: CHOLESTEROL 158 mg/dL (50-200)
[2022-11-27 12:07] LABS: LDL CHOLESTEROL (ONLY SJRH) 60 mg/dL (5-100)
[2022-11-27 12:08] LABS: HDL CHOLESTEROL 77 mg/dL (40-60)
[2022-11-27] MEDS ORDERED: morphine CARPU-JECT 2 MG/1 ML DISP.SYRIN IVPUSH PRN (13:51)
[2022-11-27] MEDS ORDERED: KETOROLAC TROMETHAMINE 30 MG/1 ML VIAL IVPUSH ONE ×3 (14:45→15:15)
[2022-11-27] MEDS: AMINO ACIDS 4.25%/D5W 1,000 ML IV SCH (17:27)
[2022-11-27] MEDS: FAT EMULSION/OLIVE/SOY/PHOSPHO 250 ML IV SCH (21:46)
[2022-11-27] MEDS ORDERED: FAT EMULSION/OLIVE/SOY (CLINOLIPID) 250 ML EMULSION IV SCH (22:00)
[2022-11-28] MEDS: PIPERACILLIN/TAZOB 2.25 GM 2.25 GM in DEXTROSE 5%-WATER - 50 ML IVPB SCH ×3 (01:31→18:58)
[2022-11-28] MEDS: HEPARIN NA (PORCINE) 5,000 UNITS/ML 1ML VIAL SQ SCH ×3 (06:06→22:39)
[2022-11-28] MEDS: AMINO ACIDS 4.25%/D5W 1,000 ML IV SCH ×2 (06:06→20:05)
[2022-11-28] MEDS: LEVOTHYROXINE NA 125 MCG TABLET (FP) PO SCH (06:07)
[2022-11-28] MEDS: DEXTROSE 5%-NORMAL SALINE 1,000 ML IV SCH (08:38)
[2022-11-28] MEDS: ONDANSETRON 4 MG/2 ML VIAL IVPUSH PRN (08:47)
[2022-11-28 09:45] LABS: POTASSIUM 4.1 mmol/L (3.5-5.1)
[2022-11-28 10:33] LABS: BILIRUBIN,TOTAL 0.2 mg/dL (0.2-1)
[2022-11-28 10:35] LABS: CALCIUM 9.2 mg/dL (8.5-10.1)
[2022-11-28 10:36] LABS: ALBUMIN 2.5 g/dl (3.4-5.0); BLOOD UREA NITROGEN 30.1 mg/dL (7-18)
[2022-11-28 10:38] LABS: MAGNESIUM 2.1 mg/dL (1.8-2.4)
[2022-11-28 10:39] LABS: CREATININE 2.1 mg/dL (0.55-1.3)
[2022-11-28] MEDS: FAMOTIDINE 20 MG/50 ML IVPB 20 MG/50 ML MG IVPB SCH (11:00)
[2022-11-28] MEDS: metoPROLOL SUCCINATE 25 MG TAB.SR.24H (FP) PO SCH (14:04)
[2022-11-28] MEDS: PANTOPRAZOLE SODIUM 40 MG VIAL IVPUSH SCH (15:57)
[2022-11-28] MEDS: LEVOTHYROXINE SODIUM 100 MCG 5 ML VIAL IVPUSH SCH (15:57)
[2022-11-28] MEDS: ACETAMINOPHEN 1000 MG/100 ML BAG IVPB PRN (17:26)
[2022-11-28] MEDS: FAT EMULSION/OLIVE/SOY/PHOSPHO 250 ML IV SCH (22:39)
[2022-11-28] MEDS: METOPROLOL TARTRATE 25 MG TABLET (FP) PO SCH (22:49)
[2022-11-29] MEDS: PIPERACILLIN/TAZOB 2.25 GM 2.25 GM in DEXTROSE 5%-WATER - 50 ML IVPB SCH ×3 (01:12→17:53)
[2022-11-29] MEDS: ACETAMINOPHEN 1000 MG/100 ML BAG IVPB PRN (06:58)
[2022-11-29] MEDS: HEPARIN NA (PORCINE) 5,000 UNITS/ML 1ML VIAL SQ SCH ×3 (06:58→22:05)
[2022-11-29] MEDS: AMINO ACIDS 4.25%/D5W 1,000 ML IV SCH ×2 (08:36→22:07)
[2022-11-29] MEDS: PANTOPRAZOLE SODIUM 40 MG VIAL IVPUSH SCH (09:06)
[2022-11-29] MEDS: LEVOTHYROXINE SODIUM 100 MCG 5 ML VIAL IVPUSH SCH (09:07)
[2022-11-29 10:18] LABS: BASO % 0.3 % (0-2.0); EOS % 3.1 % (0-4.5); HEMATOCRIT 27.6 % (32.4-45.2); HEMOGLOBIN 8.6 GM/dL (10.7-15.3); LYMPH % 7.5 % (8-40); MCHC 31.2 g/dl (32.0-36.0); MEAN CELL VOLUME 80.2 fl (80-96); MEAN PLT VOLUME 8.1 fl (7.5-11.1); MONO % 7.5 % (3.8-10.2); NEUT % 81.6 % (42.8-82.8); PLATELET COUNT 407 10^3/uL (134-434); RBC 3.44 M/mm3 (3.60-5.2); RDW 16.4 % (11.6-15.6); WHITE BLOOD COUNT 7.6 K/mm3 (4.0-10.0)
[2022-11-29 10:26] LABS: POTASSIUM 3.8 mmol/L (3.5-5.1)
[2022-11-29 10:39] LABS: CALCIUM 9.3 mg/dL (8.5-10.1)
[2022-11-29 10:40] LABS: ALBUMIN 2.6 g/dl (3.4-5.0); BLOOD UREA NITROGEN 38.8 mg/dL (7-18)
[2022-11-29 10:44] LABS: BILIRUBIN,TOTAL 0.4 mg/dL (0.2-1)
[2022-11-29 10:45] LABS: TOT PROT 6.3 g/dl (6.4-8.2)
[2022-11-29] MEDS: METOPROLOL TARTRATE 25 MG TABLET (FP) PO SCH ×3 (11:48→22:07)
[2022-11-29] MEDS ORDERED: SODIUM PHOSPHATE NR SCH (16:00)
[2022-11-29] MEDS ORDERED: SODIUM CHLORIDE NR SCH (16:00)
[2022-11-29] MEDS ORDERED: [UNRECOGNIZED DRUG - OTHER] NR SCH (16:00)
[2022-11-29] MEDS ORDERED: FOLIC ACID NR SCH (16:00)
[2022-11-29] MEDS: FAT EMULSION/OLIVE/SOY/PHOSPHO 250 ML IV SCH (22:04)
[2022-11-30] MEDS: PIPERACILLIN/TAZOB 2.25 GM 2.25 GM in DEXTROSE 5%-WATER - 50 ML IVPB SCH ×2 (01:34→10:20)
[2022-11-30] MEDS: HEPARIN NA (PORCINE) 5,000 UNITS/ML 1ML VIAL SQ SCH ×3 (05:30→22:18)
[2022-11-30] MEDS: LEVOTHYROXINE SODIUM 100 MCG 5 ML VIAL IVPUSH SCH (10:19)
[2022-11-30] MEDS: PANTOPRAZOLE SODIUM 40 MG VIAL IVPUSH SCH (10:19)
[2022-11-30] MEDS: METOPROLOL TARTRATE 25 MG TABLET (FP) PO SCH ×2 (10:19→22:12)
[2022-11-30] MEDS: FAMOTIDINE 20 MG/50 ML IVPB 20 MG/50 ML MG IVPB SCH (10:20)
[2022-11-30] MEDS: AMINO ACIDS 4.25%/D5W 1,000 ML IV SCH (11:21)
[2022-11-30 11:43] LABS: POTASSIUM 3.3 mmol/L (3.5-5.1)
[2022-11-30 11:49] LABS: ALBUMIN 2.6 g/dl (3.4-5.0); BLOOD UREA NITROGEN 57.1 mg/dL (7-18); CALCIUM 8.7 mg/dL (8.5-10.1)
[2022-11-30 11:50] LABS: MAGNESIUM 1.9 mg/dL (1.8-2.4)
[2022-11-30 11:51] LABS: CREATININE 1.8 mg/dL (0.55-1.3)
[2022-11-30 11:53] LABS: PHOSPHOROUS 2.4 mg/dL (2.5-4.9)
[2022-11-30 11:54] LABS: BILIRUBIN,TOTAL 0.4 mg/dL (0.2-1); TOT PROT 6.2 g/dl (6.4-8.2)
[2022-11-30 11:55] LABS: PREALBUMIN 15.8 mg/dl (20-40)
[2022-11-30] MEDS ORDERED: KCL 10 MEQ IVPB 10 MEQ/100 ML INFUS.BAG IVPB SCH (17:00)
[2022-11-30] MEDS: [UNRECOGNIZED DRUG - OTHER] IV SCH (17:09)
[2022-11-30] MEDS: SODIUM CHLORIDE IV SCH (17:09)
[2022-11-30] MEDS: SODIUM PHOSPHATE IV SCH (17:09)
[2022-11-30] MEDS: POTASSIUM CHLORIDE IV SCH (17:09)
[2022-11-30] MEDS: FAT EMULSION/OLIVE/SOY/PHOSPHO 250 ML IV SCH (22:18)
[2022-11-30] MEDS: ACETAMINOPHEN 1000 MG/100 ML BAG IVPB PRN (23:10)
[2022-12-01] MEDS: HEPARIN NA (PORCINE) 5,000 UNITS/ML 1ML VIAL SQ SCH ×2 (05:44→16:10)
[2022-12-01] MEDS: ACETAMINOPHEN 1000 MG/100 ML BAG IVPB PRN (05:44)
[2022-12-01 10:02] LABS: HEMOGLOBIN 7.7 GM/dL (10.7-15.3); MCH 25.5 pg (25.7-33.7); MCHC 31.9 g/dl (32.0-36.0); MEAN CELL VOLUME 79.9 fl (80-96); MEAN PLT VOLUME 8.2 fl (7.5-11.1); PLATELET COUNT 317 10^3/uL (134-434); RBC 3.01 M/mm3 (3.60-5.2); RDW 16.9 % (11.6-15.6); WHITE BLOOD COUNT 6.2 K/mm3 (4.0-10.0)
[2022-12-01] MEDS: PANTOPRAZOLE SODIUM 40 MG VIAL IVPUSH SCH (10:11)
[2022-12-01] MEDS: LEVOTHYROXINE SODIUM 100 MCG 5 ML VIAL IVPUSH SCH (10:11)
[2022-12-01] MEDS: METOPROLOL TARTRATE 25 MG TABLET (FP) PO SCH ×2 (10:11→22:01)
[2022-12-01 10:24] LABS: POTASSIUM 3.5 mmol/L (3.5-5.1)
[2022-12-01 10:26] LABS: CALCIUM 8.9 mg/dL (8.5-10.1)
[2022-12-01 10:28] LABS: ALBUMIN 2.5 g/dl (3.4-5.0); BLOOD UREA NITROGEN 66.1 mg/dL (7-18); MAGNESIUM 1.8 mg/dL (1.8-2.4)
[2022-12-01 10:31] LABS: CREATININE 1.8 mg/dL (0.55-1.3)
[2022-12-01 10:32] LABS: BILIRUBIN,TOTAL 0.7 mg/dL (0.2-1)
[2022-12-01 10:33] LABS: TOT PROT 6.3 g/dl (6.4-8.2)
[2022-12-01] MEDS ORDERED: [UNRECOGNIZED DRUG - OTHER] IV SCH (16:00)
[2022-12-01] MEDS ORDERED: POTASSIUM CHLORIDE IV SCH (16:00)
[2022-12-01] MEDS ORDERED: SODIUM CHLORIDE IV SCH (16:00)
[2022-12-01] MEDS ORDERED: SODIUM PHOSPHATE IV SCH (16:00)
[2022-12-01] MEDS: [UNRECOGNIZED DRUG - OTHER] IV SCH (16:11)
[2022-12-01] MEDS: SODIUM CHLORIDE IV SCH (16:11)
[2022-12-01] MEDS: SODIUM PHOSPHATE IV SCH (16:11)
[2022-12-01] MEDS: POTASSIUM CHLORIDE IV SCH (16:11)
[2022-12-01] MEDS ORDERED: HEPARIN NA (PORCINE) 5,000 UNITS/ML 1ML VIAL IVPUSH PRN (16:32)
[2022-12-01] MEDS: HEPARIN - 25,000 UNIT in SODIUM CHLORIDE 495 ML IV SCH (18:24)
[2022-12-01] MEDS: FAT EMULSION/OLIVE/SOY/PHOSPHO 250 ML IV SCH (22:04)
[2022-12-02] MEDS: METOPROLOL TARTRATE 25 MG TABLET (FP) PO SCH ×2 (10:06→22:29)
[2022-12-02] MEDS: LEVOTHYROXINE SODIUM 100 MCG 5 ML VIAL IVPUSH SCH (10:44)
[2022-12-02] MEDS: PANTOPRAZOLE SODIUM 40 MG VIAL IVPUSH SCH (10:45)
[2022-12-02] MEDS: FAMOTIDINE 20 MG/50 ML IVPB 20 MG/50 ML MG IVPB SCH (11:18)
[2022-12-02 11:36] LABS: HEMATOCRIT 24.7 % (32.4-45.2); MCH 25.9 pg (25.7-33.7); MCHC 32.5 g/dl (32.0-36.0); MEAN CELL VOLUME 79.7 fl (80-96); MEAN PLT VOLUME 7.6 fl (7.5-11.1); PLATELET COUNT 292 10^3/uL (134-434); RDW 16.9 % (11.6-15.6); WHITE BLOOD COUNT 6.9 K/mm3 (4.0-10.0)
[2022-12-02 11:55] LABS: POTASSIUM 3.7 mmol/L (3.5-5.1)
[2022-12-02 11:58] LABS: MAGNESIUM 1.8 mg/dL (1.8-2.4)
[2022-12-02 11:59] LABS: ALBUMIN 2.6 g/dl (3.4-5.0); CALCIUM 8.9 mg/dL (8.5-10.1)
[2022-12-02 12:00] LABS: BLOOD UREA NITROGEN 59.6 mg/dL (7-18)
[2022-12-02 12:02] LABS: BILIRUBIN,DIRECT 0.2 mg/dL (0.0-0.2); CREATININE 1.5 mg/dL (0.55-1.3); PHOSPHOROUS 3.6 mg/dL (2.5-4.9)
[2022-12-02 12:04] LABS: BILIRUBIN,TOTAL 0.3 mg/dL (0.2-1); TOT PROT 6.5 g/dl (6.4-8.2)
[2022-12-02] MEDS: [UNRECOGNIZED DRUG - OTHER] IV SCH (17:50)
[2022-12-02] MEDS: SODIUM PHOSPHATE IV SCH (17:50)
[2022-12-02] MEDS: SODIUM CHLORIDE IV SCH (17:50)
[2022-12-02] MEDS: POTASSIUM CHLORIDE IV SCH (17:50)
[2022-12-02] MEDS: HEPARIN - 25,000 UNIT in SODIUM CHLORIDE 495 ML IV SCH (17:54)
[2022-12-02] MEDS ORDERED: IRON SUCROSE INJECTION 200 MG in SODIUM CHLORIDE 90 ML IVPB ONE (18:30)
[2022-12-02] MEDS: FAT EMULSION/OLIVE/SOY/PHOSPHO 250 ML IV SCH (22:53)
[2022-12-03 09:52] LABS: HEMATOCRIT 24.6 % (32.4-45.2); HEMOGLOBIN 7.9 GM/dL (10.7-15.3); MCH 26.1 pg (25.7-33.7); MEAN CELL VOLUME 81.3 fl (80-96); MEAN PLT VOLUME 8.2 fl (7.5-11.1); PLATELET COUNT 280 10^3/uL (134-434); RBC 3.03 M/mm3 (3.60-5.2); RDW 16.9 % (11.6-15.6); WHITE BLOOD COUNT 7.5 K/mm3 (4.0-10.0)
[2022-12-03] MEDS: METOPROLOL TARTRATE 25 MG TABLET (FP) PO SCH ×2 (09:54→21:57)
[2022-12-03] MEDS: PANTOPRAZOLE SODIUM 40 MG VIAL IVPUSH SCH (10:07)
[2022-12-03] MEDS: LEVOTHYROXINE SODIUM 100 MCG 5 ML VIAL IVPUSH SCH (10:07)
[2022-12-03 10:22] LABS: POTASSIUM 3.6 mmol/L (3.5-5.1)
[2022-12-03 10:28] LABS: ALBUMIN 2.5 g/dl (3.4-5.0); BLOOD UREA NITROGEN 56.8 mg/dL (7-18)
[2022-12-03 10:30] LABS: CHOLESTEROL 163 mg/dL (50-200); MAGNESIUM 1.7 mg/dL (1.8-2.4)
[2022-12-03 10:31] LABS: LDL CHOLESTEROL (ONLY SJRH) 58 mg/dL (5-100); PHOSPHOROUS 3.4 mg/dL (2.5-4.9)
[2022-12-03 10:32] LABS: CREATININE 1.5 mg/dL (0.55-1.3)
[2022-12-03 10:33] LABS: BILIRUBIN,TOTAL 0.4 mg/dL (0.2-1); TOT PROT 6.4 g/dl (6.4-8.2)
[2022-12-03 10:35] LABS: HDL CHOLESTEROL 92 mg/dL (40-60)
[2022-12-03] MEDS ORDERED: MAGNESIUM 1GM/D5W 100ML - 100 ML IVPB IVPB ONE (11:00)
[2022-12-03] MEDS ORDERED: MAGNESIUM 2GM/50ML STERILE WATER IVPB IVPB ONE (16:17)
[2022-12-03] MEDS ORDERED: MAGNESIUM 1GM/D5W - 1 GM/100 ML IVPB IVPB ONE (17:00)
[2022-12-03] MEDS ORDERED: KETOROLAC TROMETHAMINE 15 MG/ML VIAL IVPUSH ONE ×2 (17:27→19:30)
[2022-12-03] MEDS: POTASSIUM CHLORIDE IV SCH (17:40)
[2022-12-03] MEDS: SODIUM CHLORIDE IV SCH (17:40)
[2022-12-03] MEDS: SODIUM PHOSPHATE IV SCH (17:40)
[2022-12-03] MEDS: [UNRECOGNIZED DRUG - OTHER] IV SCH (17:40)
[2022-12-03] MEDS: HEPARIN - 25,000 UNIT in SODIUM CHLORIDE 495 ML IV SCH (18:47)
[2022-12-03] MEDS: FAT EMULSION/OLIVE/SOY/PHOSPHO 250 ML IV SCH (21:56)
[2022-12-04] MEDS: FAMOTIDINE 20 MG/50 ML IVPB 20 MG/50 ML MG IVPB SCH (10:05)
[2022-12-04] MEDS: METOPROLOL TARTRATE 25 MG TABLET (FP) PO SCH ×2 (10:06→23:23)
[2022-12-04] MEDS: LEVOTHYROXINE SODIUM 100 MCG 5 ML VIAL IVPUSH SCH (10:06)
[2022-12-04] MEDS: PANTOPRAZOLE SODIUM 40 MG VIAL IVPUSH SCH (10:06)
[2022-12-04 11:05] LABS: HEMATOCRIT 23.3 % (32.4-45.2); HEMOGLOBIN 7.4 GM/dL (10.7-15.3); MCH 25.7 pg (25.7-33.7); MCHC 31.7 g/dl (32.0-36.0); MEAN CELL VOLUME 81.1 fl (80-96); MEAN PLT VOLUME 7.7 fl (7.5-11.1); PLATELET COUNT 251 10^3/uL (134-434); RBC 2.88 M/mm3 (3.60-5.2); RDW 17.4 % (11.6-15.6); WHITE BLOOD COUNT 8.6 K/mm3 (4.0-10.0)
[2022-12-04 11:28] LABS: POTASSIUM 3.3 mmol/L (3.5-5.1)
[2022-12-04 11:29] LABS: ALBUMIN 2.6 g/dl (3.4-5.0); CALCIUM 8.7 mg/dL (8.5-10.1); MAGNESIUM 2.1 mg/dL (1.8-2.4)
[2022-12-04 11:31] LABS: BLOOD UREA NITROGEN 58.7 mg/dL (7-18)
[2022-12-04 11:32] LABS: CREATININE 1.6 mg/dL (0.55-1.3); PHOSPHOROUS 3.8 mg/dL (2.5-4.9)
[2022-12-04 11:34] LABS: BILIRUBIN,TOTAL 0.4 mg/dL (0.2-1); TOT PROT 6.3 g/dl (6.4-8.2)
[2022-12-04] MEDS ORDERED: KCL 10 MEQ IVPB 10 MEQ/100 ML INFUS.BAG IVPB SCH (16:00)
[2022-12-04] MEDS: SODIUM CHLORIDE IV SCH (17:13)
[2022-12-04] MEDS: [UNRECOGNIZED DRUG - OTHER] IV SCH (17:13)
[2022-12-04] MEDS: POTASSIUM CHLORIDE IV SCH (17:13)
[2022-12-04] MEDS: SODIUM PHOSPHATE IV SCH (17:13)
[2022-12-04] MEDS: HEPARIN - 25,000 UNIT in SODIUM CHLORIDE 495 ML IV SCH (17:48)
[2022-12-04] MEDS ORDERED: IRON SUCROSE INJECTION 200 MG in SODIUM CHLORIDE 90 ML IVPB ONE (19:30)
[2022-12-04] MEDS: FAT EMULSION/OLIVE/SOY/PHOSPHO 250 ML IV SCH (21:10)
[2022-12-05 09:32] LABS: HEMATOCRIT 22.8 % (32.4-45.2); HEMOGLOBIN 7.2 GM/dL (10.7-15.3); MCHC 31.6 g/dl (32.0-36.0); MEAN CELL VOLUME 82.2 fl (80-96); MEAN PLT VOLUME 8.6 fl (7.5-11.1); PLATELET COUNT 263 10^3/uL (134-434); RBC 2.77 M/mm3 (3.60-5.2); RDW 17.4 % (11.6-15.6); WHITE BLOOD COUNT 7.5 K/mm3 (4.0-10.0)
[2022-12-05] MEDS: METOPROLOL TARTRATE 25 MG TABLET (FP) PO SCH ×2 (09:47→22:14)
[2022-12-05] MEDS: LEVOTHYROXINE SODIUM 100 MCG 5 ML VIAL IVPUSH SCH (09:47)
[2022-12-05] MEDS: PANTOPRAZOLE SODIUM 40 MG VIAL IVPUSH SCH (09:47)
[2022-12-05 12:34] LABS: POTASSIUM 3.8 mmol/L (3.5-5.1)
[2022-12-05 12:36] LABS: CALCIUM 8.8 mg/dL (8.5-10.1)
[2022-12-05 12:37] LABS: ALBUMIN 2.5 g/dl (3.4-5.0); BLOOD UREA NITROGEN 61.2 mg/dL (7-18); MAGNESIUM 2.1 mg/dL (1.8-2.4)
[2022-12-05 12:40] LABS: CREATININE 1.6 mg/dL (0.55-1.3)
[2022-12-05 12:41] LABS: BILIRUBIN,TOTAL 0.7 mg/dL (0.2-1); TOT PROT 6.2 g/dl (6.4-8.2)
[2022-12-05] MEDS: SODIUM CHLORIDE IV SCH (17:01)
[2022-12-05] MEDS: POTASSIUM CHLORIDE IV SCH (17:01)
[2022-12-05] MEDS: SODIUM PHOSPHATE IV SCH (17:01)
[2022-12-05] MEDS: [UNRECOGNIZED DRUG - OTHER] IV SCH (17:01)
[2022-12-05] MEDS: HEPARIN - 25,000 UNIT in SODIUM CHLORIDE 495 ML IV SCH (17:52)
[2022-12-05] MEDS: FAT EMULSION/OLIVE/SOY/PHOSPHO 250 ML IV SCH (22:10)
[2022-12-06 08:36] LABS: HEMATOCRIT 22.3 % (32.4-45.2); HEMOGLOBIN 7.3 GM/dL (10.7-15.3); MCH 26.1 pg (25.7-33.7); MCHC 32.7 g/dl (32.0-36.0); MEAN CELL VOLUME 80.1 fl (80-96); MEAN PLT VOLUME 8.5 fl (7.5-11.1); PLATELET COUNT 245 10^3/uL (134-434); RBC 2.79 M/mm3 (3.60-5.2); RDW 17.9 % (11.6-15.6); WHITE BLOOD COUNT 7.1 K/mm3 (4.0-10.0)
[2022-12-06 08:48] LABS: ALBUMIN 2.6 g/dl (3.4-5.0); BILIRUBIN,TOTAL 0.3 mg/dL (0.2-1); BLOOD UREA NITROGEN 61.1 mg/dL (7-18); CALCIUM 9.2 mg/dL (8.5-10.1); CREATININE 1.7 mg/dL (0.55-1.3); PHOSPHOROUS 2.4 mg/dL (2.5-4.9); POTASSIUM 3.8 mmol/L (3.5-5.1); TOT PROT 6.4 g/dl (6.4-8.2)
[2022-12-06 10:17] LABS: ANISOCYTOSIS 0; HELMET CELLS 0; HOWELL-JOLLY BODIES 0; MACROCYTOSIS 0; OVALOCYTE 0; ROULEAU 0; SICKELED CELLS 0; TARGET CELLS 0; TEAR DROP CELLS 0; TOXIC GRANULATION 0
[2022-12-06] MEDS: FAMOTIDINE 20 MG/50 ML IVPB 20 MG/50 ML MG IVPB SCH (10:56)
[2022-12-06] MEDS: LEVOTHYROXINE SODIUM 100 MCG 5 ML VIAL IVPUSH SCH (10:58)
[2022-12-06] MEDS: PANTOPRAZOLE SODIUM 40 MG VIAL IVPUSH SCH (10:58)
[2022-12-06] MEDS: METOPROLOL TARTRATE 25 MG TABLET (FP) PO SCH ×2 (10:58→21:26)
[2022-12-06] MEDS: HEPARIN - 25,000 UNIT in SODIUM CHLORIDE 495 ML IV SCH ×2 (11:57→19:05)
[2022-12-06] MEDS ORDERED: FENTANYL PATCH WASTE TD PRN (15:14)
[2022-12-06] MEDS ORDERED: fentaNYL 12mcg/hr PATCH.TD72 TD SCH (15:15)
[2022-12-06] MEDS: SODIUM CHLORIDE IV SCH (19:06)
[2022-12-06] MEDS: POTASSIUM CHLORIDE IV SCH (19:06)
[2022-12-06] MEDS: [UNRECOGNIZED DRUG - OTHER] IV SCH (19:06)
[2022-12-06] MEDS: SODIUM PHOSPHATE IV SCH (19:06)
[2022-12-06] MEDS: FAT EMULSION/OLIVE/SOY/PHOSPHO 250 ML IV SCH (21:29)
[2022-12-07] MEDS: ACETAMINOPHEN 1000 MG/100 ML BAG IVPB PRN ×2 (06:19→14:52)
[2022-12-07 10:14] LABS: BASO % 0.3 % (0-2.0); EOS % 7.3 % (0-4.5); HEMATOCRIT 22.1 % (32.4-45.2); LYMPH % 6.1 % (8-40); MCH 25.7 pg (25.7-33.7); MCHC 31.5 g/dl (32.0-36.0); MEAN CELL VOLUME 81.6 fl (80-96); MEAN PLT VOLUME 8.4 fl (7.5-11.1); MONO % 9.5 % (3.8-10.2); NEUT % 76.8 % (42.8-82.8); PLATELET COUNT 236 10^3/uL (134-434); RBC 2.71 M/mm3 (3.60-5.2); RDW 18.1 % (11.6-15.6); WHITE BLOOD COUNT 7.5 K/mm3 (4.0-10.0)
[2022-12-07 10:37] LABS: POTASSIUM 4.3 mmol/L (3.5-5.1)
[2022-12-07 10:40] LABS: CALCIUM 9.1 mg/dL (8.5-10.1)
[2022-12-07 10:41] LABS: ALBUMIN 2.4 g/dl (3.4-5.0); BLOOD UREA NITROGEN 64.1 mg/dL (7-18); MAGNESIUM 2.1 mg/dL (1.8-2.4)
[2022-12-07 10:44] LABS: CREATININE 1.6 mg/dL (0.55-1.3); PHOSPHOROUS 2.7 mg/dL (2.5-4.9)
[2022-12-07 10:45] LABS: BILIRUBIN,TOTAL 0.4 mg/dL (0.2-1); TOT PROT 6.2 g/dl (6.4-8.2)
[2022-12-07] MEDS: LEVOTHYROXINE SODIUM 100 MCG 5 ML VIAL IVPUSH SCH (12:00)
[2022-12-07] MEDS: PANTOPRAZOLE SODIUM 40 MG VIAL IVPUSH SCH (12:03)
[2022-12-07] MEDS: METOPROLOL TARTRATE 25 MG TABLET (FP) PO SCH ×2 (12:19→22:26)
[2022-12-07] MEDS: HEPARIN - 25,000 UNIT in SODIUM CHLORIDE 495 ML IV SCH (16:48)
[2022-12-07] MEDS: SODIUM PHOSPHATE IV SCH (17:00)
[2022-12-07] MEDS: SODIUM CHLORIDE IV SCH (17:00)
[2022-12-07] MEDS: [UNRECOGNIZED DRUG - OTHER] IV SCH (17:00)
[2022-12-07] MEDS: POTASSIUM CHLORIDE IV SCH (17:00)
[2022-12-07] MEDS: FAT EMULSION/OLIVE/SOY/PHOSPHO 250 ML IV SCH (22:26)
[2022-12-08] MEDS: FAMOTIDINE 20 MG/50 ML IVPB 20 MG/50 ML MG IVPB SCH (10:12)
[2022-12-08] MEDS: LEVOTHYROXINE SODIUM 100 MCG 5 ML VIAL IVPUSH SCH (10:12)
[2022-12-08] MEDS: PANTOPRAZOLE SODIUM 40 MG VIAL IVPUSH SCH (10:15)
[2022-12-08] MEDS: METOPROLOL TARTRATE 25 MG TABLET (FP) PO SCH ×2 (10:19→23:42)
[2022-12-08 10:57] LABS: ALBUMIN 2.6 g/dl (3.4-5.0); BILIRUBIN,TOTAL 0.3 mg/dL (0.2-1); BLOOD UREA NITROGEN 65.6 mg/dL (7-18); CALCIUM 9.3 mg/dL (8.5-10.1); CREATININE 1.8 mg/dL (0.55-1.3); PHOSPHOROUS 2.6 mg/dL (2.5-4.9); POTASSIUM 4.3 mmol/L (3.5-5.1); TOT PROT 6.7 g/dl (6.4-8.2)
[2022-12-08] MEDS: [UNRECOGNIZED DRUG - OTHER] IV SCH (18:00)
[2022-12-08] MEDS: POTASSIUM CHLORIDE IV SCH (18:00)
[2022-12-08] MEDS: SODIUM CHLORIDE IV SCH (18:00)
[2022-12-08] MEDS: SODIUM PHOSPHATE IV SCH (18:00)
[2022-12-08] MEDS: HEPARIN - 25,000 UNIT in SODIUM CHLORIDE 495 ML IV SCH (18:49)
[2022-12-08] MEDS: FAT EMULSION/OLIVE/SOY/PHOSPHO 250 ML IV SCH (21:08)
[2022-12-09] MEDS: POTASSIUM CHLORIDE IV SCH (06:11)
[2022-12-09] MEDS: [UNRECOGNIZED DRUG - OTHER] IV SCH (06:11)
[2022-12-09] MEDS: SODIUM CHLORIDE IV SCH (06:11)
[2022-12-09] MEDS: SODIUM PHOSPHATE IV SCH (06:11)
[2022-12-09 08:41] LABS: HEMATOCRIT 22.2 % (32.4-45.2); MCH 25.8 pg (25.7-33.7); MEAN PLT VOLUME 8.6 fl (7.5-11.1); PLATELET COUNT 210 10^3/uL (134-434); RBC 2.68 M/mm3 (3.60-5.2); RDW 18.3 % (11.6-15.6); WHITE BLOOD COUNT 8.3 K/mm3 (4.0-10.0)
[2022-12-09 08:53] LABS: HEMOGLOBIN 6.9 GM/dL (10.7-15.3)
[2022-12-09 09:13] LABS: POTASSIUM 4.6 mmol/L (3.5-5.1)
[2022-12-09 09:22] LABS: CREATININE 1.7 mg/dL (0.55-1.3)
[2022-12-09 09:23] LABS: PREALBUMIN 20.5 mg/dl (20-40); TOT PROT 6.4 g/dl (6.4-8.2)
[2022-12-09 09:24] LABS: CALCIUM 9.5 mg/dL (8.5-10.1)
[2022-12-09 09:25] LABS: ALBUMIN 2.5 g/dl (3.4-5.0)
[2022-12-09 09:26] LABS: BLOOD UREA NITROGEN 64.4 mg/dL (7-18)
[2022-12-09 09:29] LABS: BILIRUBIN,DIRECT 0.2 mg/dL (0.0-0.2); PHOSPHOROUS 2.7 mg/dL (2.5-4.9)
[2022-12-09 09:30] LABS: BILIRUBIN,TOTAL 0.6 mg/dL (0.2-1)
[2022-12-09] MEDS: FAMOTIDINE 20 MG/50 ML IVPB 20 MG/50 ML MG IVPB SCH (09:39)
[2022-12-09] MEDS: LEVOTHYROXINE SODIUM 100 MCG 5 ML VIAL IVPUSH SCH (09:40)
[2022-12-09] MEDS: PANTOPRAZOLE SODIUM 40 MG VIAL IVPUSH SCH (09:40)
[2022-12-09] MEDS: METOPROLOL TARTRATE 25 MG TABLET (FP) PO SCH ×3 (09:41→21:53)
[2022-12-09] MEDS: KETOROLAC TROMETHAMINE 30 MG/1 ML VIAL IVPUSH PRN (15:12)
[2022-12-09] MEDS: HEPARIN - 25,000 UNIT in SODIUM CHLORIDE 495 ML IV SCH (18:21)
[2022-12-09] MEDS: FAT EMULSION/OLIVE/SOY/PHOSPHO 250 ML IV SCH (21:33)
[2022-12-10] MEDS: ACETAMINOPHEN 1000 MG/100 ML BAG IVPB PRN ×2 (01:48→16:29)
[2022-12-10 05:42] LABS: HEMATOCRIT 21.3 % (32.4-45.2); MCH 25.9 pg (25.7-33.7); MCHC 30.9 g/dl (32.0-36.0); MEAN CELL VOLUME 83.6 fl (80-96); MEAN PLT VOLUME 8.5 fl (7.5-11.1); PLATELET COUNT 189 10^3/uL (134-434); RBC 2.55 M/mm3 (3.60-5.2); RDW 18.7 % (11.6-15.6); WHITE BLOOD COUNT 6.8 K/mm3 (4.0-10.0)
[2022-12-10 05:53] LABS: HEMOGLOBIN 6.6 GM/dL (10.7-15.3)
[2022-12-10 05:59] LABS: POTASSIUM 4.3 mmol/L (3.5-5.1)
[2022-12-10 06:01] LABS: CALCIUM 9.1 mg/dL (8.5-10.1)
[2022-12-10 06:02] LABS: ALBUMIN 2.2 g/dl (3.4-5.0); BLOOD UREA NITROGEN 61.8 mg/dL (7-18)
[2022-12-10 06:05] LABS: CREATININE 1.7 mg/dL (0.55-1.3)
[2022-12-10 06:07] LABS: BILIRUBIN,TOTAL 0.3 mg/dL (0.2-1); TOT PROT 6.2 g/dl (6.4-8.2)
[2022-12-10] MEDS: LEVOTHYROXINE SODIUM 100 MCG 5 ML VIAL IVPUSH SCH (10:33)
[2022-12-10] MEDS: METOPROLOL TARTRATE 25 MG TABLET (FP) PO SCH ×2 (10:33→22:22)
[2022-12-10] MEDS: PANTOPRAZOLE SODIUM 40 MG VIAL IVPUSH SCH (10:34)
[2022-12-10] MEDS: FAMOTIDINE 20 MG/50 ML IVPB 20 MG/50 ML MG IVPB SCH (10:34)
[2022-12-10] MEDS ORDERED: HEPARIN NA (PORCINE) 5,000 UNITS/ML 1ML VIAL IVPUSH PRN ×2 (15:59→16:02)
[2022-12-10] MEDS: [UNRECOGNIZED DRUG - OTHER] IV SCH (16:50)
[2022-12-10] MEDS: SODIUM PHOSPHATE IV SCH (16:50)
[2022-12-10] MEDS: SODIUM CHLORIDE IV SCH (16:50)
[2022-12-10] MEDS: POTASSIUM CHLORIDE IV SCH (16:50)
[2022-12-10] MEDS: HEPARIN - 25,000 UNIT in SODIUM CHLORIDE 495 ML IV SCH (18:48)
[2022-12-11] MEDS: ACETAMINOPHEN 1000 MG/100 ML BAG IVPB PRN ×2 (00:55→06:54)
[2022-12-11] MEDS: FAT EMULSION/OLIVE/SOY/PHOSPHO 250 ML IV SCH ×2 (01:10→23:32)
[2022-12-11 09:22] LABS: BASO % 0.4 % (0-2.0); EOS % 7.8 % (0-4.5); HEMATOCRIT 30.9 % (32.4-45.2); HEMOGLOBIN 9.9 GM/dL (10.7-15.3); LYMPH % 4.4 % (8-40); MCH 26.8 pg (25.7-33.7); MCHC 31.9 g/dl (32.0-36.0); MEAN CELL VOLUME 83.9 fl (80-96); MEAN PLT VOLUME 8.2 fl (7.5-11.1); MONO % 5.9 % (3.8-10.2); NEUT % 81.5 % (42.8-82.8); PLATELET COUNT 176 10^3/uL (134-434); RBC 3.69 M/mm3 (3.60-5.2); RDW 17.5 % (11.6-15.6); WHITE BLOOD COUNT 7.1 K/mm3 (4.0-10.0)
[2022-12-11] MEDS: LEVOTHYROXINE SODIUM 100 MCG 5 ML VIAL IVPUSH SCH (09:29)
[2022-12-11] MEDS: PANTOPRAZOLE SODIUM 40 MG VIAL IVPUSH SCH (09:29)
[2022-12-11 09:47] LABS: POTASSIUM 4.8 mmol/L (3.5-5.1)
[2022-12-11 09:51] LABS: CALCIUM 9.4 mg/dL (8.5-10.1)
[2022-12-11 09:52] LABS: MAGNESIUM 1.8 mg/dL (1.8-2.4)
[2022-12-11 09:54] LABS: ALBUMIN 2.4 g/dl (3.4-5.0)
[2022-12-11 09:55] LABS: CREATININE 1.4 mg/dL (0.55-1.3)
[2022-12-11 09:57] LABS: PHOSPHOROUS 2.4 mg/dL (2.5-4.9); TOT PROT 6.2 g/dl (6.4-8.2)
[2022-12-11 09:58] LABS: BILIRUBIN,TOTAL 0.6 mg/dL (0.2-1)
[2022-12-11 13:18] LABS: INR 1.01 (0.83-1.09); PROTHROMBIN TIME (PATIENT) 11.7 SEC (9.7-13.0)
[2022-12-11 13:20] LABS: ACTIVATED PTT 53.9 SECONDS (25.2-36.5)
[2022-12-11] MEDS: METOPROLOL TARTRATE 25 MG TABLET (FP) PO SCH ×2 (13:22→23:30)
[2022-12-11] MEDS: [UNRECOGNIZED DRUG - OTHER] IV SCH (16:00)
[2022-12-11] MEDS: POTASSIUM CHLORIDE IV SCH (16:00)
[2022-12-11] MEDS: SODIUM CHLORIDE IV SCH (16:00)
[2022-12-11] MEDS: SODIUM PHOSPHATE IV SCH (16:00)
[2022-12-11] MEDS: HEPARIN - 25,000 UNIT in SODIUM CHLORIDE 495 ML IV SCH (18:49)
[2022-12-12] MEDS: METOPROLOL TARTRATE 25 MG TABLET (FP) PO SCH ×2 (09:16→23:06)
[2022-12-12 09:58] LABS: POTASSIUM 4.5 mmol/L (3.5-5.1)
[2022-12-12 10:04] LABS: CALCIUM 9.5 mg/dL (8.5-10.1)
[2022-12-12] MEDS: FAMOTIDINE 20 MG/50 ML IVPB 20 MG/50 ML MG IVPB SCH (10:04)
[2022-12-12 10:05] LABS: ALBUMIN 2.4 g/dl (3.4-5.0); MAGNESIUM 1.7 mg/dL (1.8-2.4)
[2022-12-12 10:06] LABS: PHOSPHOROUS 2.6 mg/dL (2.5-4.9)
[2022-12-12 10:07] LABS: TOT PROT 6.3 g/dl (6.4-8.2)
[2022-12-12 10:08] LABS: CREATININE 1.3 mg/dL (0.55-1.3)
[2022-12-12 10:11] LABS: BILIRUBIN,TOTAL 0.3 mg/dL (0.2-1)
[2022-12-12] MEDS: KETOROLAC TROMETHAMINE 30 MG/1 ML VIAL IVPUSH PRN ×2 (10:58→16:42)
[2022-12-12] MEDS: LEVOTHYROXINE SODIUM 100 MCG 5 ML VIAL IVPUSH SCH (12:29)
[2022-12-12] MEDS: PANTOPRAZOLE SODIUM 40 MG VIAL IVPUSH SCH (12:30)
[2022-12-12] MEDS ORDERED: MAGNESIUM SULF 50% (8.12 MEQ/2 ML-1 GM VIAL) IVPB ONE (13:14)
[2022-12-12] MEDS: POTASSIUM CHLORIDE IV SCH (16:43)
[2022-12-12] MEDS: [UNRECOGNIZED DRUG - OTHER] IV SCH (16:43)
[2022-12-12] MEDS: SODIUM PHOSPHATE IV SCH (16:43)
[2022-12-12] MEDS: SODIUM CHLORIDE IV SCH (16:43)
[2022-12-12] MEDS: HEPARIN - 25,000 UNIT in SODIUM CHLORIDE 495 ML IV SCH (16:45)
[2022-12-12] MEDS: FAT EMULSION/OLIVE/SOY/PHOSPHO 250 ML IV SCH (21:22)
[2022-12-12] MEDS: ACETAMINOPHEN 1000 MG/100 ML BAG IVPB PRN (21:22)
[2022-12-13] MEDS: ACETAMINOPHEN 1000 MG/100 ML BAG IVPB PRN (03:27)
[2022-12-13 09:49] LABS: POTASSIUM 4.4 mmol/L (3.5-5.1)
[2022-12-13 09:56] LABS: ALBUMIN 2.4 g/dl (3.4-5.0); CALCIUM 9.4 mg/dL (8.5-10.1); MAGNESIUM 2.2 mg/dL (1.8-2.4)
[2022-12-13 09:57] LABS: BLOOD UREA NITROGEN 52.2 mg/dL (7-18)
[2022-12-13 09:59] LABS: CREATININE 1.4 mg/dL (0.55-1.3)
[2022-12-13 10:00] LABS: PHOSPHOROUS 2.9 mg/dL (2.5-4.9)
[2022-12-13 10:01] LABS: BILIRUBIN,TOTAL 0.4 mg/dL (0.2-1); TOT PROT 6.3 g/dl (6.4-8.2)
[2022-12-13] MEDS: PANTOPRAZOLE SODIUM 40 MG VIAL IVPUSH SCH (10:52)
[2022-12-13] MEDS: LEVOTHYROXINE SODIUM 100 MCG 5 ML VIAL IVPUSH SCH (10:52)
[2022-12-13] MEDS: METOPROLOL TARTRATE 25 MG TABLET (FP) PO SCH ×2 (10:53→22:30)
[2022-12-13] MEDS: HEPARIN - 25,000 UNIT in SODIUM CHLORIDE 495 ML IV SCH (17:48)
[2022-12-13] MEDS: [UNRECOGNIZED DRUG - OTHER] IV SCH (17:51)
[2022-12-13] MEDS: POTASSIUM CHLORIDE IV SCH (17:51)
[2022-12-13] MEDS: SODIUM PHOSPHATE IV SCH (17:51)
[2022-12-13] MEDS: SODIUM CHLORIDE IV SCH (17:51)
[2022-12-13] MEDS: FAT EMULSION/OLIVE/SOY/PHOSPHO 250 ML IV SCH (22:28)
[2022-12-14 10:39] LABS: POTASSIUM 4.3 mmol/L (3.5-5.1)
[2022-12-14] MEDS: LEVOTHYROXINE SODIUM 100 MCG 5 ML VIAL IVPUSH SCH (10:46)
[2022-12-14] MEDS: FAMOTIDINE 20 MG/50 ML IVPB 20 MG/50 ML MG IVPB SCH (10:46)
[2022-12-14] MEDS: PANTOPRAZOLE SODIUM 40 MG VIAL IVPUSH SCH (10:46)
[2022-12-14 10:47] LABS: BLOOD UREA NITROGEN 48.4 mg/dL (7-18); CALCIUM 9.2 mg/dL (8.5-10.1)
[2022-12-14 10:48] LABS: ALBUMIN 2.3 g/dl (3.4-5.0)
[2022-12-14 10:50] LABS: CREATININE 1.4 mg/dL (0.55-1.3)
[2022-12-14 10:52] LABS: BILIRUBIN,TOTAL 0.3 mg/dL (0.2-1)
[2022-12-14] MEDS: METOPROLOL TARTRATE 25 MG TABLET (FP) PO SCH ×2 (11:03→23:14)
[2022-12-14] MEDS: ACETAMINOPHEN 1000 MG/100 ML BAG IVPB PRN (16:58)
[2022-12-14] MEDS: SODIUM PHOSPHATE IV SCH (16:59)
[2022-12-14] MEDS: POTASSIUM CHLORIDE IV SCH (16:59)
[2022-12-14] MEDS: [UNRECOGNIZED DRUG - OTHER] IV SCH (16:59)
[2022-12-14] MEDS: SODIUM CHLORIDE IV SCH (16:59)
[2022-12-14] MEDS: HEPARIN - 25,000 UNIT in SODIUM CHLORIDE 495 ML IV SCH (19:53)
[2022-12-14] MEDS: FAT EMULSION/OLIVE/SOY/PHOSPHO 250 ML IV SCH (23:15)
[2022-12-15 10:04] LABS: BASO % 0.5 % (0-2.0); EOS % 10.6 % (0-4.5); HEMATOCRIT 28.8 % (32.4-45.2); HEMOGLOBIN 9.3 GM/dL (10.7-15.3); LYMPH % 12.4 % (8-40); MCH 27.3 pg (25.7-33.7); MCHC 32.4 g/dl (32.0-36.0); MEAN CELL VOLUME 84.2 fl (80-96); MEAN PLT VOLUME 8.9 fl (7.5-11.1); MONO % 9.8 % (3.8-10.2); NEUT % 66.7 % (42.8-82.8); PLATELET COUNT 139 10^3/uL (134-434); RBC 3.42 M/mm3 (3.60-5.2); RDW 19.1 % (11.6-15.6); WHITE BLOOD COUNT 5.9 K/mm3 (4.0-10.0)
[2022-12-15 10:09] LABS: INR 1.05 (0.83-1.09); PROTHROMBIN TIME (PATIENT) 12.2 SEC (9.7-13.0)
[2022-12-15 10:29] LABS: POTASSIUM 4.3 mmol/L (3.5-5.1)
[2022-12-15 10:33] LABS: BLOOD UREA NITROGEN 53.7 mg/dL (7-18); CALCIUM 9.3 mg/dL (8.5-10.1)
[2022-12-15 10:34] LABS: ALBUMIN 2.4 g/dl (3.4-5.0)
[2022-12-15 10:36] LABS: CREATININE 1.5 mg/dL (0.55-1.3)
[2022-12-15 10:38] LABS: BILIRUBIN,TOTAL 0.3 mg/dL (0.2-1); TOT PROT 6.1 g/dl (6.4-8.2)
[2022-12-15] MEDS: METOPROLOL TARTRATE 25 MG TABLET (FP) PO SCH ×2 (11:00→22:16)
[2022-12-15] MEDS: PANTOPRAZOLE SODIUM 40 MG VIAL IVPUSH SCH (11:00)
[2022-12-15] MEDS: LEVOTHYROXINE SODIUM 100 MCG 5 ML VIAL IVPUSH SCH (11:03)
[2022-12-15] MEDS ORDERED: HEPARIN NA (PORCINE) 5,000 UNITS/ML 1ML VIAL IVPUSH PRN ×2 (12:27)
[2022-12-15] MEDS ORDERED: POLYETHYLENE GLYCOL (HEALTHYLAX) 3350 17 GM PACKET NGT ONE (17:00)
[2022-12-15] MEDS: POTASSIUM CHLORIDE IV SCH (17:06)
[2022-12-15] MEDS: [UNRECOGNIZED DRUG - OTHER] IV SCH (17:06)
[2022-12-15] MEDS: SODIUM CHLORIDE IV SCH (17:06)
[2022-12-15] MEDS: SODIUM PHOSPHATE IV SCH (17:06)
[2022-12-15] MEDS: HEPARIN INFUSION - 25,000 UNITS/500 ML INFUS.BAG IVPB SCH (17:45)
[2022-12-15] MEDS: FAT EMULSION/OLIVE/SOY/PHOSPHO 250 ML IV SCH (22:15)
[2022-12-16] MEDS ORDERED: MIDODRINE HCL 2.5 MG TABLET PO PRN (08:28)
[2022-12-16 09:16] LABS: POTASSIUM 4.3 mmol/L (3.5-5.1)
[2022-12-16 09:28] LABS: CALCIUM 9.2 mg/dL (8.5-10.1)
[2022-12-16 09:29] LABS: CREATININE 1.4 mg/dL (0.55-1.3)
[2022-12-16 09:30] LABS: MAGNESIUM 1.8 mg/dL (1.8-2.4); TOT PROT 6.4 g/dl (6.4-8.2)
[2022-12-16] MEDS ORDERED: MIDODRINE HCL 2.5 MG TABLET PO SCH (10:00)
[2022-12-16 10:31] LABS: ALBUMIN 2.5 g/dl (3.4-5.0)
[2022-12-16 10:39] LABS: BILIRUBIN,TOTAL 0.4 mg/dL (0.2-1)
[2022-12-16 10:40] LABS: PHOSPHOROUS 3.4 mg/dL (2.5-4.9)
[2022-12-16 10:41] LABS: BLOOD UREA NITROGEN 53.9 mg/dL (7-18)
[2022-12-16] MEDS: METOPROLOL TARTRATE 25 MG TABLET (FP) PO SCH ×2 (11:13→21:43)
[2022-12-16] MEDS: PANTOPRAZOLE SODIUM 40 MG VIAL IVPUSH SCH (11:53)
[2022-12-16] MEDS: LEVOTHYROXINE SODIUM 100 MCG 5 ML VIAL IVPUSH SCH (11:53)
[2022-12-16] MEDS: FAMOTIDINE 20 MG/50 ML IVPB 20 MG/50 ML MG IVPB SCH (11:58)
[2022-12-16] MEDS: ACETAMINOPHEN 1000 MG/100 ML BAG IVPB PRN (15:25)
[2022-12-16] MEDS: HEPARIN INFUSION - 25,000 UNITS/500 ML INFUS.BAG IVPB SCH (20:47)
[2022-12-16] MEDS: SODIUM PHOSPHATE IV SCH (20:49)
[2022-12-16] MEDS: SODIUM CHLORIDE IV SCH (20:49)
[2022-12-16] MEDS: [UNRECOGNIZED DRUG - OTHER] IV SCH (20:49)
[2022-12-16] MEDS: POTASSIUM CHLORIDE IV SCH (20:49)
[2022-12-16] MEDS: FAT EMULSION/OLIVE/SOY/PHOSPHO 250 ML IV SCH (21:41)
[2022-12-17 09:05] LABS: HEMATOCRIT 29.2 % (32.4-45.2); HEMOGLOBIN 9.5 GM/dL (10.7-15.3); MCH 27.2 pg (25.7-33.7); MCHC 32.5 g/dl (32.0-36.0); MEAN CELL VOLUME 83.6 fl (80-96); MEAN PLT VOLUME 9.3 fl (7.5-11.1); PLATELET COUNT 179 10^3/uL (134-434); RBC 3.49 M/mm3 (3.60-5.2); RDW 19.2 % (11.6-15.6); WHITE BLOOD COUNT 5.4 K/mm3 (4.0-10.0)
[2022-12-17] MEDS ORDERED: POLYETHYLENE GLYCOL (HEALTHYLAX) 3350 17 GM PACKET NGT SCH (10:00)
[2022-12-17] MEDS: POLYETHYLENE GLYCOL (HEALTHYLAX) 3350 17 GM PACKET NGT SCH (10:02)
[2022-12-17] MEDS: METOPROLOL TARTRATE 25 MG TABLET (FP) PO SCH ×2 (10:02→23:37)
[2022-12-17 10:07] LABS: ALBUMIN 2.4 g/dl (3.4-5.0); BILIRUBIN,TOTAL 0.4 mg/dL (0.2-1); BLOOD UREA NITROGEN 53.8 mg/dL (7-18); CALCIUM 9.3 mg/dL (8.5-10.1); CREATININE 1.4 mg/dL (0.55-1.3); MAGNESIUM 1.9 mg/dL (1.8-2.4); PHOSPHOROUS 3.7 mg/dL (2.5-4.9); POTASSIUM 4.1 mmol/L (3.5-5.1); TOT PROT 6.3 g/dl (6.4-8.2)
[2022-12-17] MEDS: PANTOPRAZOLE SODIUM 40 MG VIAL IVPUSH SCH (10:41)
[2022-12-17] MEDS: LEVOTHYROXINE SODIUM 100 MCG 5 ML VIAL IVPUSH SCH (10:41)
[2022-12-17] MEDS: HEPARIN INFUSION - 25,000 UNITS/500 ML INFUS.BAG IVPB SCH (16:27)
[2022-12-17] MEDS: POTASSIUM CHLORIDE IV SCH (16:32)
[2022-12-17] MEDS: SODIUM CHLORIDE IV SCH (16:32)
[2022-12-17] MEDS: SODIUM PHOSPHATE IV SCH (16:32)
[2022-12-17] MEDS: [UNRECOGNIZED DRUG - OTHER] IV SCH (16:32)
[2022-12-17] MEDS: ACETAMINOPHEN 1000 MG/100 ML BAG IVPB PRN (20:50)
[2022-12-17] MEDS: FAT EMULSION/OLIVE/SOY/PHOSPHO 250 ML IV SCH (21:21)
[2022-12-18] MEDS: ACETAMINOPHEN 1000 MG/100 ML BAG IVPB PRN (07:27)
[2022-12-18 09:55] LABS: HEMATOCRIT 30.1 % (32.4-45.2); HEMOGLOBIN 9.4 GM/dL (10.7-15.3); MCH 26.6 pg (25.7-33.7); MCHC 31.2 g/dl (32.0-36.0); MEAN CELL VOLUME 85.4 fl (80-96); MEAN PLT VOLUME 9.3 fl (7.5-11.1); PLATELET COUNT 214 10^3/uL (134-434); RBC 3.53 M/mm3 (3.60-5.2); RDW 18.9 % (11.6-15.6); WHITE BLOOD COUNT 5.6 K/mm3 (4.0-10.0)
[2022-12-18] MEDS: METOPROLOL TARTRATE 25 MG TABLET (FP) PO SCH ×2 (10:27→22:20)
[2022-12-18] MEDS: LEVOTHYROXINE SODIUM 100 MCG 5 ML VIAL IVPUSH SCH (10:27)
[2022-12-18] MEDS: FAMOTIDINE 20 MG/50 ML IVPB 20 MG/50 ML MG IVPB SCH (10:27)
[2022-12-18] MEDS: PANTOPRAZOLE SODIUM 40 MG VIAL IVPUSH SCH (10:27)
[2022-12-18] MEDS: POLYETHYLENE GLYCOL (HEALTHYLAX) 3350 17 GM PACKET NGT SCH (10:28)
[2022-12-18] MEDS ORDERED: ACETAMINOPHEN 325 MG TABLET (FP) PO PRN (13:52)
[2022-12-18] MEDS ORDERED: ONDANSETRON *ODT* 4 MG TABLET SL PRN (13:52)
[2022-12-18] MEDS: HEPARIN INFUSION - 25,000 UNITS/500 ML INFUS.BAG IVPB SCH (15:25)
[2022-12-18] MEDS: DEXTROSE 5%-NORMAL SALINE 1,000 ML IV SCH (19:30)
[2022-12-19] MEDS: LEVOTHYROXINE NA 125 MCG TABLET (FP) PO SCH (06:33)
[2022-12-19] MEDS: PANTOPRAZOLE 40 MG TABLET PO SCH (09:19)
[2022-12-19] MEDS: POLYETHYLENE GLYCOL (HEALTHYLAX) 3350 17 GM PACKET NGT SCH (09:19)
[2022-12-19] MEDS: metoPROLOL SUCCINATE 25 MG TAB.SR.24H (FP) PO SCH (09:20)
[2022-12-19 09:28] LABS: HEMATOCRIT 29.4 % (32.4-45.2); HEMOGLOBIN 9.1 GM/dL (10.7-15.3); MCH 26.7 pg (25.7-33.7); MCHC 31.1 g/dl (32.0-36.0); MEAN CELL VOLUME 85.8 fl (80-96); MEAN PLT VOLUME 9.3 fl (7.5-11.1); PLATELET COUNT 235 10^3/uL (134-434); RBC 3.43 M/mm3 (3.60-5.2); RDW 19.3 % (11.6-15.6); WHITE BLOOD COUNT 6.1 K/mm3 (4.0-10.0)
[2022-12-19] MEDS: HEPARIN INFUSION - 25,000 UNITS/500 ML INFUS.BAG IVPB SCH (13:08)
[2022-12-19] MEDS: DEXTROSE 5%-NORMAL SALINE 1,000 ML IV SCH (14:46)
[2022-12-20] MEDS: LEVOTHYROXINE NA 125 MCG TABLET (FP) PO SCH (06:15)
[2022-12-20] MEDS: APIXABAN 2.5 MG TABLET PO SCH ×2 (09:07→21:27)
[2022-12-20] MEDS: metoPROLOL SUCCINATE 25 MG TAB.SR.24H (FP) PO SCH (09:08)
[2022-12-20] MEDS: PANTOPRAZOLE 40 MG TABLET PO SCH (09:08)
[2022-12-20] MEDS: POLYETHYLENE GLYCOL (HEALTHYLAX) 3350 17 GM PACKET NGT SCH (09:09)
[2022-12-20 09:34] LABS: HEMATOCRIT 28.1 % (32.4-45.2); HEMOGLOBIN 8.8 GM/dL (10.7-15.3); MCH 26.9 pg (25.7-33.7); MCHC 31.4 g/dl (32.0-36.0); MEAN CELL VOLUME 85.6 fl (80-96); MEAN PLT VOLUME 9.1 fl (7.5-11.1); PLATELET COUNT 260 10^3/uL (134-434); RBC 3.28 M/mm3 (3.60-5.2); RDW 18.7 % (11.6-15.6); WHITE BLOOD COUNT 5.5 K/mm3 (4.0-10.0)
[2022-12-20] MEDS: DEXTROSE 5%-NORMAL SALINE 1,000 ML IV SCH (15:00)
[2022-12-21] MEDS: LEVOTHYROXINE NA 125 MCG TABLET (FP) PO SCH (06:30)
[2022-12-21 09:51] LABS: BASO % 0.5 % (0-2.0); EOS % 10.1 % (0-4.5); HEMATOCRIT 28.4 % (32.4-45.2); HEMOGLOBIN 8.9 GM/dL (10.7-15.3); LYMPH % 14.5 % (8-40); MCH 26.8 pg (25.7-33.7); MCHC 31.4 g/dl (32.0-36.0); MEAN CELL VOLUME 85.3 fl (80-96); NEUT % 64.9 % (42.8-82.8); PLATELET COUNT 265 10^3/uL (134-434); RBC 3.33 M/mm3 (3.60-5.2); RDW 19.3 % (11.6-15.6)
[2022-12-21] MEDS: APIXABAN 2.5 MG TABLET PO SCH ×2 (09:56→21:55)
[2022-12-21] MEDS: POLYETHYLENE GLYCOL (HEALTHYLAX) 3350 17 GM PACKET NGT SCH (09:57)
[2022-12-21] MEDS: PANTOPRAZOLE 40 MG TABLET PO SCH (09:57)
[2022-12-21] MEDS: metoPROLOL SUCCINATE 25 MG TAB.SR.24H (FP) PO SCH (09:57)
[2022-12-21 10:16] LABS: POTASSIUM 4.2 mmol/L (3.5-5.1)
[2022-12-21 10:18] LABS: ALBUMIN 2.6 g/dl (3.4-5.0); BLOOD UREA NITROGEN 40.6 mg/dL (7-18)
[2022-12-21 10:20] LABS: CREATININE 1.4 mg/dL (0.55-1.3)
[2022-12-21 10:23] LABS: BILIRUBIN,TOTAL 0.5 mg/dL (0.2-1); TOT PROT 6.5 g/dl (6.4-8.2)
[2022-12-21] MEDS: DEXTROSE 5%-NORMAL SALINE 1,000 ML IV SCH (21:56)
[2022-12-22] MEDS: LEVOTHYROXINE NA 125 MCG TABLET (FP) PO SCH (06:54)
[2022-12-22] MEDS: APIXABAN 2.5 MG TABLET PO SCH (09:58)
[2022-12-22] MEDS: POLYETHYLENE GLYCOL (HEALTHYLAX) 3350 17 GM PACKET NGT SCH (09:58)
[2022-12-22] MEDS: PANTOPRAZOLE 40 MG TABLET PO SCH (09:58)
[2022-12-22] MEDS: metoPROLOL SUCCINATE 25 MG TAB.SR.24H (FP) PO SCH (09:58)
[2022-12-22 11:41] VITALS: BP 109/54; PULSE 70; RESP 20; TEMP 97.8
[2022-12-22] MEDS: DEXTROSE 5%-NORMAL SALINE 1,000 ML IV SCH (14:00)
== END 2022-12-22 15:15 | DRG 388 ==
LOC: JER 03:24 → JERBED 06:05 → J8W 21:50
PROVIDERS: ADMIT Family Medicine; ATTEND Family Medicine
PROC: 3E0436Z Introduction of Nutritional Substance into Central Vein, Percutaneous Approach (ICD-10-PCS; principal; 2022-11-25)
PROC: 0DH67UZ Insertion of Feeding Device into Stomach, Via Natural or Artificial Opening (ICD-10-PCS; 2022-11-25)
PROC: 02H633Z Insertion of Infusion Device into Right Atrium, Percutaneous Approach (ICD-10-PCS; 2022-11-26)
PROC: 02HV33Z Insertion of Infusion Device into Superior Vena Cava, Percutaneous Approach (ICD-10-PCS; 2022-12-08)
PROC: B518ZZA Fluoroscopy of Superior Vena Cava, Guidance (ICD-10-PCS; 2022-12-08)
PROC: 30233N1 Transfusion of Nonautologous Red Blood Cells into Peripheral Vein, Percutaneous Approach (ICD-10-PCS; 2022-12-10)
DX: K91.31 Postprocedural partial intestinal obstruction (principal); U07.1 COVID-19; I24.8 Other forms of acute ischemic heart disease; I48.92 Unspecified atrial flutter; I45.2 Bifascicular block; R64 Cachexia; N17.9 Acute kidney failure, unspecified; E46 Unspecified protein-calorie malnutrition; E87.1 Hypo-osmolality and hyponatremia; I82.4Z2 Acute embolism and thrombosis of unspecified deep veins of left distal lower extremity; I31.39 Other pericardial effusion (noninflammatory); J90 Pleural effusion, not elsewhere classified; K74.69 Other cirrhosis of liver; D25.9 Leiomyoma of uterus, unspecified; E03.9 Hypothyroidism, unspecified; Y83.8 Other surgical procedures as the cause of abnormal reaction of the patient, or of later complication, without mention of misadventure at the time of the procedure; E78.5 Hyperlipidemia, unspecified; G89.18 Other acute postprocedural pain; I12.9 Hypertensive chronic kidney disease with stage 1 through stage 4 chronic kidney disease, or unspecified chronic kidney disease; N18.9 Chronic kidney disease, unspecified; I45.10 Unspecified right bundle-branch block; D72.829 Elevated white blood cell count, unspecified; E86.0 Dehydration; E87.6 Hypokalemia; R77.8 Other specified abnormalities of plasma proteins; Z85.038 Personal history of other malignant neoplasm of large intestine; Z68.23 Body mass index [BMI] 23.0-23.9, adult
CPT/HCPCS: 36415; 36430; 36558; 36569; 71045-TC-FY; 74018-TC-FY; 74019-TC-FY; 74176-TC; 77001-TC-FY; 80048; 80053; 80061; 80076; 81003; 82550; 82746; 82962; 83540; 83550; 83605; 83690; 83735; 84100; 84134; 84255; 84439; 84443; 84466; 84478; 84484; 84630; 85025; 85027; 85610; 85730; 86850; 86900; 86901; 86922; 87040; 87086; 87635; 93005; 93010; 93970-TC; 97116-GP; 97161-GP; 99285-25; C1751; J1644; J1756; P9058

== ENCOUNTER 2023-01-06 11:21 | Inpatient (IN) | payer OTHER ==
[2023-01-06] MEDS ORDERED: ACETAMINOPHEN 1000 MG/100 ML BAG IVPB ONE (12:12)
[2023-01-06] MEDS ORDERED: LACTATED RINGERS SOLUTION 1,000 ML/1,000 ML INFUS.BAG IV STA (12:12)
[2023-01-06] MEDS ORDERED: ACETAMINOPHEN INJECTION 100 ML IVPB ONE (12:16)
[2023-01-06 13:09] LABS: HEMATOCRIT 35.3 % (32.4-45.2); HEMOGLOBIN 10.9 GM/dL (10.7-15.3); MCH 25.8 pg (25.7-33.7); MCHC 30.9 g/dl (32.0-36.0); MEAN CELL VOLUME 83.5 fl (80-96); MEAN PLT VOLUME 8.4 fl (7.5-11.1); PLATELET COUNT 314 10^3/uL (134-434); RBC 4.23 M/mm3 (3.60-5.2); RDW 16.7 % (11.6-15.6); WHITE BLOOD COUNT 24.3 K/mm3 (4.0-10.0)
[2023-01-06 13:17] LABS: INR 1.39 (0.83-1.09); PROTHROMBIN TIME (PATIENT) 16.1 SEC (9.7-13.0)
[2023-01-06] MEDS ORDERED: PIPERACILLIN/TAZOB 4.5 GM 4.5 GM in DEXTROSE 5%-WATER 100 ML IVPB ONE (13:28)
[2023-01-06 13:45] LABS: POTASSIUM 4.9 mmol/L (3.5-5.1)
[2023-01-06 13:47] LABS: ALBUMIN 2.7 g/dl (3.4-5.0); BLOOD UREA NITROGEN 24.7 mg/dL (7-18); CALCIUM 10.1 mg/dL (8.5-10.1); MAGNESIUM 2.1 mg/dL (1.8-2.4)
[2023-01-06 13:51] LABS: CREATININE 1.4 mg/dL (0.55-1.3)
[2023-01-06 13:52] LABS: BILIRUBIN,TOTAL 0.8 mg/dL (0.2-1); TOT PROT 7.3 g/dl (6.4-8.2)
[2023-01-06] MEDS ORDERED: LACTATED RINGERS SOLUTION 1000 ML INFUS.BAG IV ONE (13:56)
[2023-01-06 14:26] LABS: ANISOCYTOSIS 1+; MACROCYTOSIS 0
[2023-01-06] MEDS ORDERED: FENTANYL CITRATE/PF 50 MCG/ML VIAL ONE (15:10)
[2023-01-06 15:17] LABS: EPI CELLS >36 /uL (0-25.1); HYALINE CASTS 1 /uL (0-3.1); PH,URINE 5.5 (5.0-8.0); URINE APPEARANCE CLEAR; URINE BACTERIA 155 /uL (0-1359); URINE BILIRUBIN NEGATIVE (NEGATIVE); URINE COLOR DK YELLOW; URINE GLUCOSE (UA) NEGATIVE (NEGATIVE); URINE KETONE NEGATIVE (NEGATIVE); URINE LEUK ESTERASE 1+ (NEGATIVE); URINE NITRITE NEGATIVE (NEGATIVE); URINE PROTEIN 2+ (NEGATIVE); URINE RBC 47 /uL (0-23.9); URINE WBC 71 /uL (0-25.8)
[2023-01-06] MEDS ORDERED: PIPERACILLIN/TAZOB 4.5 GM 4.5 GM/100 ML BAG IVPB ONE (15:32)
[2023-01-06] MEDS: SODIUM CHLORIDE 1,000 ML IV SCH ×2 (16:51→19:33)
[2023-01-06 17:24] LABS: BASO % 0.2 % (0-2.0); HEMATOCRIT 32.2 % (32.4-45.2); HEMOGLOBIN 10.5 GM/dL (10.7-15.3); LYMPH % 2.8 % (8-40); MCH 26.8 pg (25.7-33.7); MCHC 32.6 g/dl (32.0-36.0); MEAN CELL VOLUME 82.4 fl (80-96); MEAN PLT VOLUME 8.3 fl (7.5-11.1); MONO % 5.7 % (3.8-10.2); NEUT % 91.3 % (42.8-82.8); PLATELET COUNT 266 10^3/uL (134-434); RBC 3.91 M/mm3 (3.60-5.2); RDW 16.8 % (11.6-15.6); WHITE BLOOD COUNT 27.6 K/mm3 (4.0-10.0)
[2023-01-06 17:48] LABS: POTASSIUM 4.6 mmol/L (3.5-5.1)
[2023-01-06 17:50] LABS: CALCIUM 9.5 mg/dL (8.5-10.1)
[2023-01-06 17:51] LABS: ALBUMIN 2.4 g/dl (3.4-5.0); BLOOD UREA NITROGEN 26.6 mg/dL (7-18)
[2023-01-06 17:54] LABS: CREATININE 1.6 mg/dL (0.55-1.3)
[2023-01-06 17:56] LABS: BILIRUBIN,TOTAL 0.9 mg/dL (0.2-1); TOT PROT 6.6 g/dl (6.4-8.2)
[2023-01-06 18:10] LABS: ANISOCYTOSIS 1+; MACROCYTOSIS 0; OVALOCYTE 1+
[2023-01-06] MEDS ORDERED: MIDODRINE HCL 2.5 MG TABLET PO PRN (18:33)
[2023-01-06] MEDS: ACETAMINOPHEN 1000 MG/100 ML BAG IVPB PRN (19:29)
[2023-01-06] MEDS: PIPERACILLIN/TAZOB 3.375 GM 3.375 GM in DEXTROSE 5%-WATER - 50 ML IVPB SCH (19:31)
[2023-01-06] MEDS ORDERED: traMADol HCL 50 MG TABLET PO ONE (20:02)
[2023-01-06] MEDS ORDERED: HEPARIN NA (PORCINE) 5,000 UNITS/ML 1ML VIAL IVPUSH PRN ×2 (22:35)
[2023-01-06] MEDS ORDERED: HEPARIN INFUSION - 25,000 UNITS/500 ML INFUS.BAG IVPB SCH (22:45)
[2023-01-07] MEDS: PIPERACILLIN/TAZOB 3.375 GM 3.375 GM in DEXTROSE 5%-WATER - 50 ML IVPB SCH ×2 (03:57→09:59)
[2023-01-07] MEDS: ACETAMINOPHEN 1000 MG/100 ML BAG IVPB PRN ×2 (04:17→11:41)
[2023-01-07] MEDS: LEVOTHYROXINE NA 125 MCG TABLET (FP) PO SCH (08:03)
[2023-01-07] MEDS: metoPROLOL SUCCINATE 25 MG TAB.SR.24H (FP) PO SCH (09:58)
[2023-01-07] MEDS: PANTOPRAZOLE 40 MG TABLET PO SCH (09:58)
[2023-01-07 11:13] LABS: INR 1.52 (0.83-1.09); PROTHROMBIN TIME (PATIENT) 17.6 SEC (9.7-13.0)
[2023-01-07 11:38] LABS: POTASSIUM 4.3 mmol/L (3.5-5.1)
[2023-01-07 11:48] LABS: CALCIUM 8.9 mg/dL (8.5-10.1)
[2023-01-07 11:49] LABS: ALBUMIN 2.2 g/dl (3.4-5.0); BLOOD UREA NITROGEN 30.8 mg/dL (7-18)
[2023-01-07 11:52] LABS: CREATININE 1.7 mg/dL (0.55-1.3)
[2023-01-07 11:54] LABS: BILIRUBIN,TOTAL 0.9 mg/dL (0.2-1)
[2023-01-07 13:00] LABS: ACTIVATED PTT 33.6 SECONDS (25.2-36.5)
[2023-01-07] MEDS ORDERED: KETOROLAC TROMETHAMINE 15 MG/ML VIAL IVPUSH ONE (15:00)
[2023-01-07 15:26] LABS: HEMATOCRIT 28.2 % (32.4-45.2); MCH 26.5 pg (25.7-33.7); MCHC 31.7 g/dl (32.0-36.0); MEAN CELL VOLUME 83.5 fl (80-96); MEAN PLT VOLUME 8.3 fl (7.5-11.1); PLATELET COUNT 239 10^3/uL (134-434); RBC 3.38 M/mm3 (3.60-5.2); RDW 16.8 % (11.6-15.6); WHITE BLOOD COUNT 28.5 K/mm3 (4.0-10.0)
[2023-01-07 15:52] LABS: ANISOCYTOSIS 0; HELMET CELLS 0; HOWELL-JOLLY BODIES 0; MACROCYTOSIS 0; OVALOCYTE 0; ROULEAU 0; SICKELED CELLS 0; TARGET CELLS 0; TEAR DROP CELLS 0; TOXIC GRANULATION 0
[2023-01-07] MEDS: PIPERACILLIN/TAZOB 2.25 GM 2.25 GM in DEXTROSE 5%-WATER - 50 ML IVPB SCH ×2 (16:36→21:15)
[2023-01-07] MEDS: SODIUM CHLORIDE 1,000 ML IV SCH (16:36)
[2023-01-07] MEDS: POLYETHYLENE GLYCOL (HEALTHYLAX) 3350 17 GM PACKET PO SCH (16:37)
[2023-01-07] MEDS ORDERED: MINERAL OIL ENEMA 133 ML ENEMA RC ONE (17:00)
[2023-01-07] MEDS: DEXTROSE 5%-NORMAL SALINE 1,000 ML IV SCH (17:11)
[2023-01-07] MEDS ORDERED: ACETAMINOPHEN 1000 MG/100 ML BAG IVPB PRN (19:33)
[2023-01-08] MEDS: PIPERACILLIN/TAZOB 2.25 GM 2.25 GM in DEXTROSE 5%-WATER - 50 ML IVPB SCH ×4 (02:51→22:53)
[2023-01-08] MEDS: LEVOTHYROXINE NA 125 MCG TABLET (FP) PO SCH (07:00)
[2023-01-08] MEDS ORDERED: HYDROmorphone HCl 2 MG/ML VIAL IVPB PRN (10:02)
[2023-01-08] MEDS: DEXTROSE 5%-NORMAL SALINE 1,000 ML IV SCH ×2 (10:25→19:01)
[2023-01-08] MEDS: PANTOPRAZOLE 40 MG TABLET PO SCH (10:56)
[2023-01-08] MEDS: POLYETHYLENE GLYCOL (HEALTHYLAX) 3350 17 GM PACKET PO SCH (10:56)
[2023-01-08] MEDS: metoPROLOL SUCCINATE 25 MG TAB.SR.24H (FP) PO SCH ×2 (11:09→11:55)
[2023-01-08 12:34] LABS: HEMATOCRIT 26.1 % (32.4-45.2); HEMOGLOBIN 8.1 GM/dL (10.7-15.3); MCH 26.1 pg (25.7-33.7); MEAN CELL VOLUME 84.1 fl (80-96); MEAN PLT VOLUME 8.8 fl (7.5-11.1); PLATELET COUNT 254 10^3/uL (134-434); RDW 16.4 % (11.6-15.6); WHITE BLOOD COUNT 21.7 K/mm3 (4.0-10.0)
[2023-01-08] MEDS ORDERED: SODIUM CHLORIDE 250 ML IV STA (12:50)
[2023-01-08 16:26] LABS: HEMATOCRIT 24.5 % (32.4-45.2); HEMOGLOBIN 7.6 GM/dL (10.7-15.3); MCHC 31.2 g/dl (32.0-36.0); MEAN CELL VOLUME 83.5 fl (80-96); MEAN PLT VOLUME 8.2 fl (7.5-11.1); PLATELET COUNT 237 10^3/uL (134-434); RBC 2.94 M/mm3 (3.60-5.2); RDW 16.4 % (11.6-15.6); WHITE BLOOD COUNT 21.7 K/mm3 (4.0-10.0)
[2023-01-08 17:41] LABS: ANISOCYTOSIS 1+; MACROCYTOSIS 0; PLATELET ESTIMATE NORMAL
[2023-01-08] MEDS ORDERED: FENTANYL CITRATE/PF 50 MCG/ML VIAL ONE (17:42)
[2023-01-08] MEDS ORDERED: FENTANYL CITRATE/PF 50 MCG/ML VIAL IVPUSH ONE (17:45)
[2023-01-08] MEDS ORDERED: SODIUM CHLORIDE 500 ML IV ONE (17:45)
[2023-01-09] MEDS: PIPERACILLIN/TAZOB 2.25 GM 2.25 GM in DEXTROSE 5%-WATER - 50 ML IVPB SCH ×4 (02:24→22:55)
[2023-01-09] MEDS: LEVOTHYROXINE NA 125 MCG TABLET (FP) PO SCH (06:32)
[2023-01-09 09:13] LABS: HEMATOCRIT 25.7 % (32.4-45.2); HEMOGLOBIN 7.8 GM/dL (10.7-15.3); MCH 25.9 pg (25.7-33.7); MCHC 30.4 g/dl (32.0-36.0); MEAN CELL VOLUME 85.2 fl (80-96); MEAN PLT VOLUME 8.2 fl (7.5-11.1); PLATELET COUNT 262 10^3/uL (134-434); RBC 3.01 M/mm3 (3.60-5.2); RDW 16.2 % (11.6-15.6); WHITE BLOOD COUNT 14.4 K/mm3 (4.0-10.0)
[2023-01-09] MEDS: metoPROLOL SUCCINATE 25 MG TAB.SR.24H (FP) PO SCH (10:06)
[2023-01-09] MEDS: POLYETHYLENE GLYCOL (HEALTHYLAX) 3350 17 GM PACKET PO SCH (10:06)
[2023-01-09] MEDS: PANTOPRAZOLE 40 MG TABLET PO SCH (10:06)
[2023-01-09] MEDS: DEXTROSE 5%-NORMAL SALINE 1,000 ML IV SCH (17:41)
[2023-01-10] MEDS: PIPERACILLIN/TAZOB 2.25 GM 2.25 GM in DEXTROSE 5%-WATER - 50 ML IVPB SCH ×4 (02:18→22:38)
[2023-01-10] MEDS: LEVOTHYROXINE NA 125 MCG TABLET (FP) PO SCH (06:05)
[2023-01-10] MEDS: DEXTROSE 5%-NORMAL SALINE 1,000 ML IV SCH (09:14)
[2023-01-10] MEDS: PANTOPRAZOLE 40 MG TABLET PO SCH (09:24)
[2023-01-10] MEDS: metoPROLOL SUCCINATE 25 MG TAB.SR.24H (FP) PO SCH (09:24)
[2023-01-10] MEDS: POLYETHYLENE GLYCOL (HEALTHYLAX) 3350 17 GM PACKET PO SCH (09:38)
[2023-01-10 10:21] LABS: HEMATOCRIT 25.8 % (32.4-45.2); HEMOGLOBIN 8.4 GM/dL (10.7-15.3); MCHC 32.5 g/dl (32.0-36.0); MEAN CELL VOLUME 83.2 fl (80-96); MEAN PLT VOLUME 8.1 fl (7.5-11.1); PLATELET COUNT 259 10^3/uL (134-434); RBC 3.11 M/mm3 (3.60-5.2); WHITE BLOOD COUNT 7.6 K/mm3 (4.0-10.0)
[2023-01-10] MEDS: PIPERACILLIN/TAZOB 3.375 GM 3.375 GM in DEXTROSE 5%-WATER - 50 ML IVPB SCH ×2 (17:58→17:59)
[2023-01-11] MEDS: DEXTROSE 5%-NORMAL SALINE 1,000 ML IV SCH (01:43)
[2023-01-11] MEDS: PIPERACILLIN/TAZOB 2.25 GM 2.25 GM in DEXTROSE 5%-WATER - 50 ML IVPB SCH ×4 (02:58→22:30)
[2023-01-11] MEDS: LEVOTHYROXINE NA 125 MCG TABLET (FP) PO SCH (06:02)
[2023-01-11] MEDS: metoPROLOL SUCCINATE 25 MG TAB.SR.24H (FP) PO SCH (09:27)
[2023-01-11] MEDS: PANTOPRAZOLE 40 MG TABLET PO SCH (09:27)
[2023-01-11] MEDS: POLYETHYLENE GLYCOL (HEALTHYLAX) 3350 17 GM PACKET PO SCH (09:27)
[2023-01-11 12:22] LABS: HEMATOCRIT 28.5 % (32.4-45.2); HEMOGLOBIN 8.8 GM/dL (10.7-15.3); MCH 26.5 pg (25.7-33.7); MEAN CELL VOLUME 85.7 fl (80-96); PLATELET COUNT 285 10^3/uL (134-434); RBC 3.32 M/mm3 (3.60-5.2); RDW 16.4 % (11.6-15.6); WHITE BLOOD COUNT 6.8 K/mm3 (4.0-10.0)
[2023-01-11 12:43] LABS: POTASSIUM 3.4 mmol/L (3.5-5.1)
[2023-01-11 12:46] LABS: CALCIUM 8.7 mg/dL (8.5-10.1)
[2023-01-11 12:47] LABS: ALBUMIN 1.8 g/dl (3.4-5.0); BLOOD UREA NITROGEN 14.8 mg/dL (7-18)
[2023-01-11 12:50] LABS: CREATININE 1.4 mg/dL (0.55-1.3)
[2023-01-11 12:52] LABS: BILIRUBIN,TOTAL 0.2 mg/dL (0.2-1); TOT PROT 5.6 g/dl (6.4-8.2)
[2023-01-11 12:54] LABS: ANISOCYTOSIS 1+; MACROCYTOSIS 0; OVALOCYTE 1+
[2023-01-11] MEDS: ENOXAPARIN NA (PORCINE) 80 MG/0.8 ML DISP.SYRIN SQ SCH ×3 (16:53→17:14)
[2023-01-11] MEDS: POTASSIUM CHLORIDE 10 MEQ in SODIUM CHLORIDE 0.45% 1,000 ML IVPB SCH ×2 (17:20→17:22)
[2023-01-11 19:06] VITALS: RESP 18
[2023-01-12] MEDS: PIPERACILLIN/TAZOB 2.25 GM 2.25 GM in DEXTROSE 5%-WATER - 50 ML IVPB SCH ×4 (02:55→22:00)
[2023-01-12] MEDS: POTASSIUM CHLORIDE 10 MEQ in SODIUM CHLORIDE 0.45% 1,000 ML IVPB SCH ×2 (06:45→13:43)
[2023-01-12] MEDS: LEVOTHYROXINE NA 125 MCG TABLET (FP) PO SCH (06:45)
[2023-01-12 09:34] LABS: HEMATOCRIT 28.2 % (32.4-45.2); MCH 26.7 pg (25.7-33.7); MCHC 31.9 g/dl (32.0-36.0); MEAN CELL VOLUME 83.7 fl (80-96); MEAN PLT VOLUME 7.9 fl (7.5-11.1); PLATELET COUNT 302 10^3/uL (134-434); RBC 3.37 M/mm3 (3.60-5.2); RDW 16.5 % (11.6-15.6); WHITE BLOOD COUNT 8.1 K/mm3 (4.0-10.0)
[2023-01-12 09:48] LABS: POTASSIUM 3.6 mmol/L (3.5-5.1)
[2023-01-12 09:53] LABS: ALBUMIN 1.8 g/dl (3.4-5.0); MAGNESIUM 1.9 mg/dL (1.8-2.4)
[2023-01-12 09:56] LABS: CREATININE 1.3 mg/dL (0.55-1.3)
[2023-01-12 09:58] LABS: BILIRUBIN,TOTAL 0.3 mg/dL (0.2-1); TOT PROT 5.6 g/dl (6.4-8.2)
[2023-01-12] MEDS: metoPROLOL SUCCINATE 25 MG TAB.SR.24H (FP) PO SCH (11:44)
[2023-01-12] MEDS: ENOXAPARIN NA (PORCINE) 80 MG/0.8 ML DISP.SYRIN SQ SCH (11:44)
[2023-01-12] MEDS: PANTOPRAZOLE 40 MG TABLET PO SCH (11:44)
[2023-01-12] MEDS: POLYETHYLENE GLYCOL (HEALTHYLAX) 3350 17 GM PACKET PO SCH (11:54)
[2023-01-12] MEDS: ACETAMINOPHEN 325 MG TABLET (FP) PO PRN (15:00)
[2023-01-13] MEDS: PIPERACILLIN/TAZOB 2.25 GM 2.25 GM in DEXTROSE 5%-WATER - 50 ML IVPB SCH ×4 (03:53→20:42)
[2023-01-13] MEDS: POTASSIUM CHLORIDE 10 MEQ in SODIUM CHLORIDE 0.45% 1,000 ML IVPB SCH ×3 (05:42→20:13)
[2023-01-13] MEDS: LEVOTHYROXINE NA 125 MCG TABLET (FP) PO SCH (06:04)
[2023-01-13] MEDS: ACETAMINOPHEN 325 MG TABLET (FP) PO PRN (09:21)
[2023-01-13] MEDS: PANTOPRAZOLE 40 MG TABLET PO SCH (09:56)
[2023-01-13] MEDS: ENOXAPARIN NA (PORCINE) 80 MG/0.8 ML DISP.SYRIN SQ SCH (09:56)
[2023-01-13] MEDS: metoPROLOL SUCCINATE 25 MG TAB.SR.24H (FP) PO SCH (09:56)
[2023-01-13] MEDS: POLYETHYLENE GLYCOL (HEALTHYLAX) 3350 17 GM PACKET PO SCH ×2 (09:58→10:16)
[2023-01-13 16:29] VITALS: BMI 24.3
[2023-01-14] MEDS: PIPERACILLIN/TAZOB 2.25 GM 2.25 GM in DEXTROSE 5%-WATER - 50 ML IVPB SCH ×2 (02:27→08:35)
[2023-01-14] MEDS: LEVOTHYROXINE NA 125 MCG TABLET (FP) PO SCH (07:48)
[2023-01-14] MEDS: POTASSIUM CHLORIDE 10 MEQ in SODIUM CHLORIDE 0.45% 1,000 ML IVPB SCH (07:48)
[2023-01-14] MEDS: ENOXAPARIN NA (PORCINE) 80 MG/0.8 ML DISP.SYRIN SQ SCH (09:50)
[2023-01-14] MEDS: metoPROLOL SUCCINATE 25 MG TAB.SR.24H (FP) PO SCH (09:50)
[2023-01-14] MEDS: PANTOPRAZOLE 40 MG TABLET PO SCH (09:50)
[2023-01-14] MEDS: POLYETHYLENE GLYCOL (HEALTHYLAX) 3350 17 GM PACKET PO SCH (09:58)
[2023-01-14 15:55] VITALS: BP 136/79; PULSE 66; TEMP 98.2
== END 2023-01-14 17:02 | DRG 445 ==
LOC: JER 11:21 → JERBED 15:48 → J5S 19:16
PROVIDERS: ADMIT Family Medicine; ATTEND Family Medicine
PROC: 0F9430Z Drainage of Gallbladder with Drainage Device, Percutaneous Approach (ICD-10-PCS; principal; 2023-01-08)
DX: K81.0 Acute cholecystitis (principal); I82.402 Acute embolism and thrombosis of unspecified deep veins of left lower extremity; K56.609 Unspecified intestinal obstruction, unspecified as to partial versus complete obstruction; I10 Essential (primary) hypertension; E78.5 Hyperlipidemia, unspecified; N18.9 Chronic kidney disease, unspecified; Z85.038 Personal history of other malignant neoplasm of large intestine
CPT/HCPCS: 36415; 47490; 71045-TC-FY; 74019-TC-FY; 74176-TC; 80053; 81003; 82272; 83605; 83735; 84443; 85025; 85027; 85610; 85730; 86850; 86900; 86901; 87070; 87075; 87086; 87102; 87116; 87186; 87205; 87206; 87210; 87635; 93005; 93010; 93970-TC; 97116-GP; 97161-GP; 99285-25; J1644

== ENCOUNTER 2023-01-29 16:18 | Emergency (ER) | payer OTHER ==
[2023-01-29 16:40] VITALS: TEMP 98.5; BMI 25.8
[2023-01-29 17:35] LABS: HEMATOCRIT 25.7 % (32.4-45.2); HEMOGLOBIN 7.6 GM/dL (10.7-15.3); MCHC 29.5 g/dl (32.0-36.0); MEAN CELL VOLUME 84.6 fl (80-96); MEAN PLT VOLUME 7.4 fl (7.5-11.1); PLATELET COUNT 473 10^3/uL (134-434); RBC 3.04 M/mm3 (3.60-5.2); RDW 16.8 % (11.6-15.6); WHITE BLOOD COUNT 3.7 K/mm3 (4.0-10.0)
[2023-01-29 17:45] LABS: INR 1.15 (0.83-1.09); PROTHROMBIN TIME (PATIENT) 13.3 SEC (9.7-13.0)
[2023-01-29 17:53] LABS: POTASSIUM 4.2 mmol/L (3.5-5.1)
[2023-01-29 17:55] LABS: CALCIUM 9.6 mg/dL (8.5-10.1)
[2023-01-29 17:56] LABS: ALBUMIN 2.2 g/dl (3.4-5.0); BLOOD UREA NITROGEN 16.8 mg/dL (7-18)
[2023-01-29 17:59] LABS: CREATININE 1.3 mg/dL (0.55-1.3)
[2023-01-29 18:00] LABS: BILIRUBIN,TOTAL 0.2 mg/dL (0.2-1); TOT PROT 6.1 g/dl (6.4-8.2)
[2023-01-29] MEDS ORDERED: ACETAMINOPHEN 1000 MG/100 ML BAG IVPB ONE (22:09)
[2023-01-29] MEDS ORDERED: ACETAMINOPHEN INJECTION 100 ML IVPB ONE (22:27)
[2023-01-29 22:38] VITALS: BP 110/73; PULSE 71; RESP 15
[2023-01-29] MEDS ORDERED: APIXABAN 2.5 MG TABLET PO SCH (23:45)
[2023-01-29] MEDS ORDERED: GABAPENTIN 100 MG CAPSULE PO ONE (23:47)
[2023-01-30] MEDS ORDERED: APIXABAN 2.5 MG TABLET ONE (00:07)
[2023-01-30] MEDS ORDERED: GABAPENTIN 100 MG CAPSULE ONE (00:07)
== END 2023-01-30 03:17 ==
LOC: JER 16:18
PROC: 3E033NZ Introduction of Analgesics, Hypnotics, Sedatives into Peripheral Vein, Percutaneous Approach (ICD-10-PCS; principal; 2023-01-29)
DX: R10.9 Unspecified abdominal pain (principal); R11.2 Nausea with vomiting, unspecified; D64.9 Anemia, unspecified
CPT/HCPCS: 36415; 71045-TC-FY; 80053; 85027; 85610; 86850; 86900; 86901; 93005; 93010; 99285-25

== ENCOUNTER → 2023-03-02 | Day surgery (SDC) | payer OTHER | END | disposition home or self-care (01) | LOC: JRADIR 08:59 | PROVIDERS: ATTEND Surgery | PROC: BF00YZZ Plain Radiography of Bile Ducts using Other Contrast (ICD-10-PCS; principal; 2023-03-02) | DX: K81.9 Cholecystitis, unspecified (principal) | CPT/HCPCS: 47531 ==

== ENCOUNTER 2023-05-06 20:52 | Emergency (ER) | payer OTHER ==
[2023-05-06 21:06] VITALS: BMI 24.9
[2023-05-06 22:35] LABS: BASO % 0.4 % (0-2.0); EOS % 1.9 % (0-4.5); HEMATOCRIT 26.8 % (32.4-45.2); HEMOGLOBIN 8.4 GM/dL (10.7-15.3); LYMPH % 9.7 % (8-40); MCH 25.3 pg (25.7-33.7); MCHC 31.5 g/dl (32.0-36.0); MEAN CELL VOLUME 80.5 fl (80-96); MEAN PLT VOLUME 8.4 fl (7.5-11.1); MONO % 7.4 % (3.8-10.2); NEUT % 80.6 % (42.8-82.8); PLATELET COUNT 239 10^3/uL (134-434); RBC 3.32 M/mm3 (3.60-5.2); RDW 13.8 % (11.6-15.6); WHITE BLOOD COUNT 5.6 K/mm3 (4.0-10.0)
[2023-05-06 22:54] LABS: POTASSIUM 4.8 mmol/L (3.5-5.1)
[2023-05-06 22:55] LABS: CALCIUM 9.9 mg/dL (8.5-10.1)
[2023-05-06 22:56] LABS: ALBUMIN 3.4 g/dl (3.4-5.0); BLOOD UREA NITROGEN 27.6 mg/dL (7-18)
[2023-05-06 22:59] LABS: CREATININE 1.7 mg/dL (0.55-1.3)
[2023-05-06 23:01] LABS: BILIRUBIN,TOTAL 0.5 mg/dL (0.2-1)
[2023-05-06] MEDS ORDERED: ACETAMINOPHEN INJECTION 100 ML IVPB ONE (23:04)
[2023-05-06] MEDS ORDERED: traMADol HCL 50 MG TABLET ONE (23:04)
[2023-05-06] MEDS: ACETAMINOPHEN 1000 MG/100 ML BAG IVPB ONE (23:10)
[2023-05-06] MEDS: traMADol HCL 50 MG TABLET PO ONE (23:11)
[2023-05-06] MEDS: LACTATED RINGERS SOLUTION 1000 ML INFUS.BAG IV ONE (23:12)
[2023-05-07 00:45] VITALS: PULSE 67; RESP 18
[2023-05-07 01:04] LABS: POTASSIUM 4.1 mmol/L (3.5-5.1)
[2023-05-07 01:05] LABS: CALCIUM 9.8 mg/dL (8.5-10.1)
[2023-05-07 01:06] LABS: BLOOD UREA NITROGEN 26.9 mg/dL (7-18)
[2023-05-07 01:09] LABS: CREATININE 1.6 mg/dL (0.55-1.3)
[2023-05-07 04:54] VITALS: BP 118/83; TEMP 98.4
== END 2023-05-07 05:46 | disposition home or self-care (01) ==
LOC: JER 20:52
PROC: 3E033NZ Introduction of Analgesics, Hypnotics, Sedatives into Peripheral Vein, Percutaneous Approach (ICD-10-PCS; principal; 2023-05-06)
DX: R10.11 Right upper quadrant pain (principal)
CPT/HCPCS: 36415; 74176-TC; 76705-TC; 80048; 80053; 83690; 85025; 93005; 93010; 99285-25; J0131

== ENCOUNTER 2023-05-18 04:05 | Inpatient (IN) | payer OTHER ==
[2023-05-18] MEDS: HYDROmorphone HCl 2 MG/ML VIAL IVPUSH PRN
[2023-05-18] MEDS ORDERED: INDOCYANINE GREEN 25 MG/10 ML VIAL IVPUSH ONE (11:32)
[2023-05-18] MEDS ORDERED: BUPIVACAINE HCL/PF 0.25% (2.5MG/ML) 10 ML VIAL ONE (11:55)
[2023-05-18] MEDS ORDERED: LIDOCAINE HCL/PF 2% SDV 5ML VIAL ONE (12:05)
[2023-05-18] MEDS ORDERED: PROPOFOL 20 ML ONE (12:06)
[2023-05-18] MEDS ORDERED: ROCURONIUM BROMIDE 50 MG/5 ML SYRINGE ONE (12:07)
[2023-05-18] MEDS ORDERED: SUCCINYLCHOLINE CHLORIDE 200 MG/10 ML SYRINGE ONE (12:07)
[2023-05-18] MEDS: cefOXitin SODIUM 2 GM VIAL (RESTRICTED TO ID) IVPB ONE (12:45)
[2023-05-18] MEDS ORDERED: DEXAMETHASONE SOD PHOSPHATE 4 MG/1 ML VIAL ONE (12:54)
[2023-05-18] MEDS ORDERED: HEPARIN NA (PORCINE) 5,000 UNITS/ML 1ML VIAL ONE (12:57)
[2023-05-18] MEDS: BUPIVACAINE HCL/PF 0.25% (2.5MG/ML) 10 ML VIAL IJ ONE ×3 (13:12→16:49)
[2023-05-18] MEDS ORDERED: PROMETHAZINE HCL 25 MG/1 ML VIAL IVPB PRN (17:15)
[2023-05-18] MEDS ORDERED: ONDANSETRON 4 MG/2 ML VIAL ONE (17:17)
[2023-05-18] MEDS: ONDANSETRON 4 MG/2 ML VIAL IVPUSH PRN (17:20)
[2023-05-18] MEDS: KETOROLAC TROMETHAMINE 15 MG/ML VIAL IVPUSH PRN (17:45)
[2023-05-18] MEDS: ACETAMINOPHEN 1000 MG/100 ML BAG IVPB ONE (17:45)
[2023-05-18] MEDS ORDERED: KETOROLAC TROMETHAMINE 30 MG/1 ML VIAL ONE (17:45)
[2023-05-18] MEDS ORDERED: ACETAMINOPHEN INJECTION 100 ML IVPB ONE (17:45)
[2023-05-18] MEDS ORDERED: HYDROmorphone HCl 2 MG/ML VIAL ONE (17:53)
[2023-05-18 18:10] LABS: BASO % 0.2 % (0-2.0); EOS % 0.1 % (0-4.5); HEMATOCRIT 30.1 % (32.4-45.2); HEMOGLOBIN 9.5 GM/dL (10.7-15.3); LYMPH % 7.8 % (8-40); MCH 26.5 pg (25.7-33.7); MCHC 31.7 g/dl (32.0-36.0); MEAN CELL VOLUME 83.6 fl (80-96); MEAN PLT VOLUME 8.5 fl (7.5-11.1); MONO % 2.5 % (3.8-10.2); NEUT % 89.4 % (42.8-82.8); PLATELET COUNT 231 10^3/uL (134-434); WHITE BLOOD COUNT 14.3 K/mm3 (4.0-10.0)
[2023-05-18] MEDS: DEXTROSE 5%-LACTATED RINGERS 1,000 ML IV SCH (18:20)
[2023-05-18 18:27] LABS: ALBUMIN 2.8 g/dl (3.4-5.0)
[2023-05-18 18:32] LABS: BILIRUBIN,TOTAL 1.2 mg/dL (0.2-1); TOT PROT 6.1 g/dl (6.4-8.2)
[2023-05-18 18:33] LABS: BILIRUBIN,DIRECT 0.3 mg/dL (0.0-0.2)
[2023-05-18 18:42] LABS: ACTIVATED PTT 28.3 SECONDS (25.2-36.5); INR 1.03 (0.83-1.09); PROTHROMBIN TIME (PATIENT) 11.9 SEC (9.7-13.0)
[2023-05-18 18:46] LABS: POTASSIUM 4.3 mmol/L (3.5-5.1)
[2023-05-18] MEDS ORDERED: KETOROLAC TROMETHAMINE 15 MG/ML VIAL IVPUSH PRN (18:47)
[2023-05-18 18:49] LABS: CALCIUM 9.8 mg/dL (8.5-10.1)
[2023-05-18 18:50] LABS: ALBUMIN 2.8 g/dl (3.4-5.0); BLOOD UREA NITROGEN 22.5 mg/dL (7-18)
[2023-05-18 18:53] LABS: CREATININE 1.8 mg/dL (0.55-1.3)
[2023-05-18 18:54] LABS: BILIRUBIN,TOTAL 1.3 mg/dL (0.2-1); TOT PROT 5.9 g/dl (6.4-8.2)
[2023-05-18] MEDS: PANTOPRAZOLE SODIUM 40 MG VIAL IVPUSH SCH (21:53)
[2023-05-18] MEDS: CHLORHEXIDINE GLUCONATE 4% CLEANSER FOR DECOLONIZATION TP SCH (21:55)
[2023-05-18] MEDS: MUPIROCIN 2% TOPICAL OINTMENT FOR DECOLONIZATION NS SCH (21:55)
[2023-05-18] MEDS: LIDOCAINE PATCH REMOVAL MC SCH (21:56)
[2023-05-18] MEDS ORDERED: MUPIROCIN 2% TOPICAL OINTMENT FOR DECOLONIZATION NS SCH (22:00)
[2023-05-18] MEDS ORDERED: CHLORHEXIDINE GLUCONATE 4% CLEANSER FOR DECOLONIZATION TP SCH (22:00)
[2023-05-18] MEDS: LACTATED RINGERS SOLUTION 1,000 ML IV SCH (22:02)
[2023-05-19] MEDS: HYDROmorphone HCl 2 MG/ML VIAL IVPUSH PRN (00:54)
[2023-05-19] MEDS: ACETAMINOPHEN 1000 MG/100 ML BAG IVPB SCH (01:02)
[2023-05-19] MEDS: INSULIN ASPART SLIDING SCALE (NOVOLOG) 1 VIAL SQ SCH (06:00)
[2023-05-19 07:15] LABS: HEMATOCRIT 26.9 % (32.4-45.2); HEMOGLOBIN 8.9 GM/dL (10.7-15.3); MCH 27.2 pg (25.7-33.7); MCHC 33.1 g/dl (32.0-36.0); MEAN CELL VOLUME 82.3 fl (80-96); MEAN PLT VOLUME 8.8 fl (7.5-11.1); PLATELET COUNT 220 10^3/uL (134-434); RBC 3.28 M/mm3 (3.60-5.2); RDW 14.3 % (11.6-15.6); WHITE BLOOD COUNT 8.2 K/mm3 (4.0-10.0)
[2023-05-19] MEDS: SODIUM CHLORIDE 500 ML IV STA ×2 (07:17→15:21)
[2023-05-19 07:42] LABS: CHLORIDE 106 mmol/L (98-107); POTASSIUM 4.6 mmol/L (3.5-5.1); SODIUM 139 mmol/L (136-145)
[2023-05-19 07:59] LABS: CALCIUM 9.4 mg/dL (8.5-10.1)
[2023-05-19 08:00] LABS: ALBUMIN 2.4 g/dl (3.4-5.0); GLUCOSE,RANDOM 87 mg/dL (74-106); MAGNESIUM 1.7 mg/dL (1.8-2.4)
[2023-05-19 08:03] LABS: ANION GAP 8 mmol/L (4-13); BILIRUBIN,DIRECT 0.4 mg/dL (0.0-0.2); BLOOD UREA NITROGEN 30.9 mg/dL (7-18); CO2 24 mmol/L (21-32); CREATININE 1.9 mg/dL (0.55-1.3); SGOT/AST 109 U/L (15-37); SGPT/ALT 76 U/L (13-61)
[2023-05-19] MEDS: LACTATED RINGERS SOLUTION 1000 ML INFUS.BAG IV ONE ×2 (08:03→08:50)
[2023-05-19 08:05] LABS: TOT PROT 5.4 g/dl (6.4-8.2)
[2023-05-19 08:06] LABS: ALK PHOS 60 U/L (45-117)
[2023-05-19] MEDS ORDERED: MIDODRINE HCL 5 MG TABLET PO ONE (08:38)
[2023-05-19] MEDS: MAGNESIUM 2GM/50ML STERILE WATER IVPB IVPB ONE (08:39)
[2023-05-19] MEDS ORDERED: NOREPINEPHRINE BITARTRATE 4 MG/4 ML ML IV ONE (09:15)
[2023-05-19] MEDS: NOREPINEPHRINE BITARTRATE 4,000 MCG in DEXTROSE 5%-WATER - 496 ML IV SCH (09:33)
[2023-05-19 09:39] LABS: ANISOCYTOSIS 0; MACROCYTOSIS 0
[2023-05-19] MEDS: LIDOCAINE 4% PATCH TP SCH (09:54)
[2023-05-19] MEDS: MIDODRINE HCL 5 MG TABLET PO ONE ×2 (09:54→15:21)
[2023-05-19] MEDS: LEVOTHYROXINE NA 125 MCG TABLET (FP) PO SCH (09:54)
[2023-05-19] MEDS ORDERED: DOCUSATE SODIUM 100 MG CAPSULE (FP) PO PRN (10:19)
[2023-05-19 12:32] LABS: HEMATOCRIT 28.6 % (32.4-45.2); MCHC 31.4 g/dl (32.0-36.0); MEAN CELL VOLUME 82.9 fl (80-96); PLATELET COUNT 216 10^3/uL (134-434); RBC 3.45 M/mm3 (3.60-5.2); RDW 14.7 % (11.6-15.6); WHITE BLOOD COUNT 15.7 K/mm3 (4.0-10.0)
[2023-05-19] MEDS: MIDODRINE HCL 5 MG TABLET PO SCH ×2 (13:23→21:52)
[2023-05-19] MEDS: KETOROLAC TROMETHAMINE 15 MG/ML VIAL IM PRN (13:40)
[2023-05-19] MEDS: VASopressin 40 UNITS/100 ML BAG IV SCH (14:29)
[2023-05-19] MEDS: traMADol HCL 50 MG TABLET PO ONE (17:30)
[2023-05-19 18:23] LABS: HEMOGLOBIN 7.4 GM/dL (10.7-15.3); MCH 26.4 pg (25.7-33.7); MCHC 32.2 g/dl (32.0-36.0); MEAN CELL VOLUME 81.9 fl (80-96); MEAN PLT VOLUME 8.9 fl (7.5-11.1); PLATELET COUNT 180 10^3/uL (134-434); RBC 2.81 M/mm3 (3.60-5.2); RDW 14.6 % (11.6-15.6); WHITE BLOOD COUNT 14.7 K/mm3 (4.0-10.0)
[2023-05-19] MEDS: oxyCODONE HCL 5 MG TABLET PO PRN (21:39)
[2023-05-20 00:35] LABS: HEMATOCRIT 24.1 % (32.4-45.2); HEMOGLOBIN 7.9 GM/dL (10.7-15.3); MCH 26.7 pg (25.7-33.7); MCHC 32.7 g/dl (32.0-36.0); MEAN CELL VOLUME 81.7 fl (80-96); MEAN PLT VOLUME 8.6 fl (7.5-11.1); PLATELET COUNT 166 10^3/uL (134-434); RBC 2.95 M/mm3 (3.60-5.2); RDW 14.6 % (11.6-15.6); WHITE BLOOD COUNT 13.5 K/mm3 (4.0-10.0)
[2023-05-20 07:33] LABS: POTASSIUM 4.9 mmol/L (3.5-5.1)
[2023-05-20 07:44] LABS: HEMATOCRIT 28.4 % (32.4-45.2); HEMOGLOBIN 9.8 GM/dL (10.7-15.3); MCH 28.5 pg (25.7-33.7); MCHC 34.6 g/dl (32.0-36.0); MEAN CELL VOLUME 82.2 fl (80-96); MEAN PLT VOLUME 8.5 fl (7.5-11.1); PLATELET COUNT 167 10^3/uL (134-434); RBC 3.45 M/mm3 (3.60-5.2); RDW 14.3 % (11.6-15.6); WHITE BLOOD COUNT 12.4 K/mm3 (4.0-10.0)
[2023-05-20 07:51] LABS: ALBUMIN 2.2 g/dl (3.4-5.0); CALCIUM 8.4 mg/dL (8.5-10.1)
[2023-05-20 07:52] LABS: BLOOD UREA NITROGEN 33.4 mg/dL (7-18); MAGNESIUM 1.8 mg/dL (1.8-2.4)
[2023-05-20 07:54] LABS: CREATININE 2.3 mg/dL (0.55-1.3); PHOSPHOROUS 3.9 mg/dL (2.5-4.9)
[2023-05-20 07:55] LABS: BILIRUBIN,TOTAL 0.9 mg/dL (0.2-1); TOT PROT 5.2 g/dl (6.4-8.2)
[2023-05-20] MEDS: DEXTROSE 5%-LACTATED RINGERS 1,000 ML IV SCH (08:05)
[2023-05-20 13:05] LABS: HEMATOCRIT 30.9 % (32.4-45.2); MCHC 32.5 g/dl (32.0-36.0); MEAN CELL VOLUME 82.9 fl (80-96); MEAN PLT VOLUME 9.1 fl (7.5-11.1); PLATELET COUNT 170 10^3/uL (134-434); RBC 3.72 M/mm3 (3.60-5.2); RDW 14.3 % (11.6-15.6); WHITE BLOOD COUNT 13.6 K/mm3 (4.0-10.0)
[2023-05-20] MEDS: traMADol HCL 50 MG TABLET PO PRN (21:26)
[2023-05-21 07:33] LABS: HEMOGLOBIN 9.6 GM/dL (10.7-15.3); MCH 27.5 pg (25.7-33.7); MCHC 33.2 g/dl (32.0-36.0); MEAN CELL VOLUME 82.9 fl (80-96); MEAN PLT VOLUME 8.9 fl (7.5-11.1); PLATELET COUNT 201 10^3/uL (134-434); RBC 3.49 M/mm3 (3.60-5.2); RDW 14.3 % (11.6-15.6); WHITE BLOOD COUNT 10.4 K/mm3 (4.0-10.0)
[2023-05-21 07:59] LABS: POTASSIUM 4.6 mmol/L (3.5-5.1)
[2023-05-21 08:14] LABS: CREATININE 2.4 mg/dL (0.55-1.3)
[2023-05-21 08:15] LABS: TOT PROT 5.3 g/dl (6.4-8.2)
[2023-05-21 08:17] LABS: ALBUMIN 2.2 g/dl (3.4-5.0); BLOOD UREA NITROGEN 42.6 mg/dL (7-18); CALCIUM 8.6 mg/dL (8.5-10.1)
[2023-05-21 08:20] LABS: BILIRUBIN,DIRECT 0.7 mg/dL (0.0-0.2)
[2023-05-21 08:21] LABS: BILIRUBIN,TOTAL 1.2 mg/dL (0.2-1)
[2023-05-21] MEDS: ENOXAPARIN NA (PORCINE) 30 MG/0.3 ML DISP.SYRIN SQ SCH (09:01)
[2023-05-21] MEDS ORDERED: ACETAMINOPHEN INJECTION 100 ML IVPB ONE (09:33)
[2023-05-21] MEDS: ACETAMINOPHEN 1000 MG/100 ML BAG IVPB ONE (09:51)
[2023-05-21] MEDS: MIDODRINE HCL 5 MG TABLET PO SCH ×2 (14:26→17:03)
[2023-05-21] MEDS: ACETAMINOPHEN 1000 MG/100 ML BAG IVPB PRN (14:44)
[2023-05-22] MEDS ORDERED: SODIUM CHLORIDE 1,000 ML IV SCH (11:15)
[2023-05-22] MEDS: DEXTROSE 5%-NORMAL SALINE 1,000 ML IV SCH (11:18)
[2023-05-22 11:37] LABS: MCH 27.1 pg (25.7-33.7); MCHC 32.2 g/dl (32.0-36.0); MEAN CELL VOLUME 84.3 fl (80-96); MEAN PLT VOLUME 8.8 fl (7.5-11.1); PLATELET COUNT 201 10^3/uL (134-434); RBC 3.68 M/mm3 (3.60-5.2); RDW 14.8 % (11.6-15.6)
[2023-05-22 12:10] LABS: CALCIUM 9.2 mg/dL (8.5-10.1)
[2023-05-22 12:11] LABS: BLOOD UREA NITROGEN 47.6 mg/dL (7-18)
[2023-05-22 12:14] LABS: CREATININE 2.8 mg/dL (0.55-1.3)
[2023-05-22 12:16] LABS: BILIRUBIN,TOTAL 1.1 mg/dL (0.2-1); TOT PROT 5.3 g/dl (6.4-8.2)
[2023-05-22 12:28] LABS: ANISOCYTOSIS 0; HELMET CELLS 0; HOWELL-JOLLY BODIES 0; MACROCYTOSIS 0; OVALOCYTE 0; ROULEAU 0; SICKELED CELLS 0; TARGET CELLS 0; TEAR DROP CELLS 0; TOXIC GRANULATION 0
[2023-05-22] MEDS ORDERED: DOCUSATE SODIUM 100 MG CAPSULE (FP) PO PRN (16:43)
[2023-05-22 19:07] LABS: HEMATOCRIT 30.9 % (32.4-45.2); HEMOGLOBIN 10.1 GM/dL (10.7-15.3); MCH 27.5 pg (25.7-33.7); MCHC 32.6 g/dl (32.0-36.0); MEAN CELL VOLUME 84.1 fl (80-96); MEAN PLT VOLUME 8.2 fl (7.5-11.1); PLATELET COUNT 185 10^3/uL (134-434); RBC 3.68 M/mm3 (3.60-5.2); RDW 15.1 % (11.6-15.6); WHITE BLOOD COUNT 5.4 K/mm3 (4.0-10.0)
[2023-05-22 19:32] LABS: POTASSIUM 4.8 mmol/L (3.5-5.1)
[2023-05-22 19:35] LABS: BLOOD UREA NITROGEN 47.9 mg/dL (7-18)
[2023-05-22 19:40] LABS: TOT PROT 5.3 g/dl (6.4-8.2)
[2023-05-22 19:44] LABS: CREATININE 2.8 mg/dL (0.55-1.3)
[2023-05-22] MEDS: MUPIROCIN 2% TOPICAL OINTMENT FOR DECOLONIZATION NS SCH (23:01)
[2023-05-22] MEDS: CHLORHEXIDINE GLUCONATE 4% CLEANSER FOR DECOLONIZATION TP SCH (23:02)
[2023-05-22] MEDS: LIDOCAINE PATCH REMOVAL MC SCH (23:04)
[2023-05-23] MEDS: traMADol HCL 50 MG TABLET PO PRN (01:45)
[2023-05-23] MEDS: INSULIN ASPART SLIDING SCALE (NOVOLOG) 1 VIAL SQ SCH (06:37)
[2023-05-23] MEDS: LEVOTHYROXINE NA 125 MCG TABLET (FP) PO SCH (07:02)
[2023-05-23 08:22] LABS: POTASSIUM 4.5 mmol/L (3.5-5.1)
[2023-05-23 08:25] LABS: ALBUMIN 1.8 g/dl (3.4-5.0); CALCIUM 8.9 mg/dL (8.5-10.1)
[2023-05-23 08:26] LABS: BLOOD UREA NITROGEN 46.6 mg/dL (7-18); MAGNESIUM 1.9 mg/dL (1.8-2.4)
[2023-05-23 08:28] LABS: CREATININE 2.4 mg/dL (0.55-1.3); PHOSPHOROUS 3.4 mg/dL (2.5-4.9)
[2023-05-23 08:30] LABS: BILIRUBIN,TOTAL 0.9 mg/dL (0.2-1); TOT PROT 4.8 g/dl (6.4-8.2)
[2023-05-23] MEDS: LIDOCAINE 4% PATCH TP SCH (09:37)
[2023-05-23] MEDS: PANTOPRAZOLE SODIUM 40 MG VIAL IVPUSH SCH (09:38)
[2023-05-23 09:43] LABS: HEMATOCRIT 29.3 % (32.4-45.2); HEMOGLOBIN 9.3 GM/dL (10.7-15.3); MCH 26.9 pg (25.7-33.7); MCHC 31.9 g/dl (32.0-36.0); MEAN CELL VOLUME 84.4 fl (80-96); MEAN PLT VOLUME 8.9 fl (7.5-11.1); PLATELET COUNT 184 10^3/uL (134-434); RBC 3.47 M/mm3 (3.60-5.2); RDW 14.8 % (11.6-15.6); WHITE BLOOD COUNT 8.2 K/mm3 (4.0-10.0)
[2023-05-23 11:26] LABS: ANISOCYTOSIS 0; HELMET CELLS 0; HOWELL-JOLLY BODIES 0; MACROCYTOSIS 0; OVALOCYTE 0; ROULEAU 0; SICKELED CELLS 0; TARGET CELLS 0; TEAR DROP CELLS 0; TOXIC GRANULATION 0
[2023-05-24] MEDS: PIPERACILLIN/TAZOB 3.375 GM 3.375 GM in DEXTROSE 5%-WATER - 50 ML IVPB SCH (17:42)
[2023-05-25] MEDS: SODIUM CHLORIDE 1,000 ML IV STA (07:58)
[2023-05-25 08:27] LABS: HEMATOCRIT 28.8 % (32.4-45.2); HEMOGLOBIN 9.3 GM/dL (10.7-15.3); MCH 27.2 pg (25.7-33.7); MCHC 32.4 g/dl (32.0-36.0); MEAN PLT VOLUME 8.1 fl (7.5-11.1); PLATELET COUNT 146 10^3/uL (134-434); RBC 3.42 M/mm3 (3.60-5.2); RDW 15.3 % (11.6-15.6); WHITE BLOOD COUNT 10.9 K/mm3 (4.0-10.0)
[2023-05-25 08:38] LABS: INR 1.14 (0.83-1.09); PROTHROMBIN TIME (PATIENT) 13.2 SEC (9.7-13.0)
[2023-05-25 08:45] LABS: POTASSIUM 3.9 mmol/L (3.5-5.1)
[2023-05-25] MEDS ORDERED: PHENYLEPHRINE HCL 10 MG/1 ML SINGLE DOSE VIAL ONE (08:48)
[2023-05-25] MEDS ORDERED: SUCCINYLCHOLINE CHLORIDE 200 MG/10 ML SYRINGE ONE (08:49)
[2023-05-25] MEDS ORDERED: PROPOFOL 40 ML ONE (08:49)
[2023-05-25] MEDS ORDERED: ROCURONIUM BROMIDE 50 MG/5 ML SYRINGE ONE (08:49)
[2023-05-25 08:58] LABS: ALBUMIN 1.6 g/dl (3.4-5.0); CALCIUM 9.3 mg/dL (8.5-10.1)
[2023-05-25 08:59] LABS: BLOOD UREA NITROGEN 45.7 mg/dL (7-18)
[2023-05-25] MEDS ORDERED: HEPARIN NA (PORCINE) 5,000 UNITS/ML 1ML VIAL ONE (09:00)
[2023-05-25 09:01] LABS: CREATININE 1.9 mg/dL (0.55-1.3)
[2023-05-25 09:02] LABS: BILIRUBIN,TOTAL 1.3 mg/dL (0.2-1)
[2023-05-25 09:03] LABS: TOT PROT 4.9 g/dl (6.4-8.2)
[2023-05-25] MEDS: AMINO ACIDS/PROTEIN HYDROLYS 30 ML LIQUID.PKT PO SCH (09:03)
[2023-05-25] MEDS ORDERED: KETAMINE HCL 200 MG/20 ML VIAL ONE (09:12)
[2023-05-25] MEDS ORDERED: ceFAZolin SODIUM 1 GM VIAL ONE (09:32)
[2023-05-25] MEDS: ALBUMIN HUMAN 5% 500 ML IV SOLUTION IV ONE ×2 (10:35→15:30)
[2023-05-25] MEDS ORDERED: HYDROmorphone HCl 2 MG/ML VIAL ONE (11:43)
[2023-05-25] MEDS ORDERED: SUGAMMADEX SODIUM 200 MG/2 ML VIAL ONE ×3 (11:51→11:55)
[2023-05-25] MEDS ORDERED: ONDANSETRON 4 MG/2 ML VIAL IVPUSH PRN ×2 (12:27→13:08)
[2023-05-25] MEDS ORDERED: DOCUSATE SODIUM 100 MG CAPSULE (FP) PO PRN (13:08)
[2023-05-25] MEDS ORDERED: traMADol HCL 50 MG TABLET PO PRN ×2 (13:08→13:29)
[2023-05-25] MEDS: PIPERACILLIN/TAZOB 3.375 GM 3.375 GM in DEXTROSE 5%-WATER - 50 ML IVPB SCH ×2 (15:26→18:15)
[2023-05-25] MEDS: MULTIVITAMINS (DAILY MVI) TABLET (FP) PO SCH (15:31)
[2023-05-25] MEDS: ALBUMIN HUMAN 5% 250 ML IV SOLUTION IV ONE (15:31)
[2023-05-25] MEDS: ASCORBIC ACID 250 MG TABLET (FP) PO SCH (15:31)
[2023-05-25] MEDS: LACTATED RINGERS SOLUTION 1,000 ML IV SCH (15:33)
[2023-05-25] MEDS: SODIUM CHLORIDE 1,000 ML IV SCH (16:00)
[2023-05-25] MEDS: INSULIN ASPART SLIDING SCALE (NOVOLOG) 1 VIAL SQ SCH (17:45)
[2023-05-25] MEDS: MIDODRINE HCL 5 MG TABLET PO SCH (18:15)
[2023-05-25] MEDS: MEROPENEM 1 GM in DEXTROSE 5%-WATER 100 ML IVPB SCH (18:17)
[2023-05-25] MEDS: DEXTROSE 5%-NORMAL SALINE 1,000 ML IV SCH (18:59)
[2023-05-26] MEDS: ACETAMINOPHEN 1000 MG/100 ML BAG IVPB PRN (03:04)
[2023-05-26] MEDS: HYDROmorphone HCl 2 MG/ML VIAL IVPB PRN (05:37)
[2023-05-26] MEDS: LEVOTHYROXINE NA 125 MCG TABLET (FP) PO SCH (06:04)
[2023-05-26 07:57] LABS: HEMATOCRIT 26.2 % (32.4-45.2); HEMOGLOBIN 8.2 GM/dL (10.7-15.3); MCH 26.5 pg (25.7-33.7); MCHC 31.3 g/dl (32.0-36.0); MEAN CELL VOLUME 84.7 fl (80-96); MEAN PLT VOLUME 8.7 fl (7.5-11.1); PLATELET COUNT 151 10^3/uL (134-434); RBC 3.09 M/mm3 (3.60-5.2); RDW 15.5 % (11.6-15.6); WHITE BLOOD COUNT 14.3 K/mm3 (4.0-10.0)
[2023-05-26 08:21] LABS: POTASSIUM 3.7 mmol/L (3.5-5.1)
[2023-05-26 08:26] LABS: BLOOD UREA NITROGEN 49.5 mg/dL (7-18)
[2023-05-26 08:47] LABS: MAGNESIUM 1.7 mg/dL (1.8-2.4)
[2023-05-26 08:49] LABS: ANISOCYTOSIS 0; MACROCYTOSIS 0
[2023-05-26] MEDS: AMINO ACIDS/PROTEIN HYDROLYS 30 ML LIQUID.PKT PO SCH (09:20)
[2023-05-26] MEDS: ENOXAPARIN NA (PORCINE) 30 MG/0.3 ML DISP.SYRIN SQ SCH (10:56)
[2023-05-26] MEDS: ASCORBIC ACID 250 MG TABLET (FP) PO SCH (10:57)
[2023-05-26] MEDS: MAGNESIUM SULF 50% (8.12 MEQ/2 ML-1 GM VIAL) IVPB ONE (10:57)
[2023-05-26] MEDS: MULTIVITAMINS (DAILY MVI) TABLET (FP) PO SCH (10:57)
[2023-05-26] MEDS: PANTOPRAZOLE SODIUM 40 MG VIAL IVPUSH SCH (10:57)
[2023-05-26] MEDS: AMINO ACIDS 4.25%/D5W 1,000 ML IV SCH (10:58)
[2023-05-26 11:04] LABS: CREATININE 1.9 mg/dL (0.55-1.3)
[2023-05-26] MEDS: DEXTROSE 5%-NORMAL SALINE 1,000 ML IV SCH (14:20)
[2023-05-26] MEDS ORDERED: INSULIN (NOVOLOG) ASPART 100 UNITS/ML 10ML VIAL ONE (20:22)
[2023-05-27] MEDS ORDERED: PANTOPRAZOLE 40 MG TABLET PO SCH (10:00)
[2023-05-27 11:52] LABS: HEMOGLOBIN 8.4 GM/dL (10.7-15.3); MCHC 32.2 g/dl (32.0-36.0); MEAN PLT VOLUME 8.2 fl (7.5-11.1); PLATELET COUNT 182 10^3/uL (134-434); RBC 3.09 M/mm3 (3.60-5.2); RDW 15.4 % (11.6-15.6); WHITE BLOOD COUNT 11.6 K/mm3 (4.0-10.0)
[2023-05-27 12:50] LABS: POTASSIUM 3.6 mmol/L (3.5-5.1)
[2023-05-27 12:54] LABS: BLOOD UREA NITROGEN 53.5 mg/dL (7-18); CALCIUM 9.7 mg/dL (8.5-10.1); MAGNESIUM 2.1 mg/dL (1.8-2.4)
[2023-05-27 12:55] LABS: ALBUMIN 1.6 g/dl (3.4-5.0)
[2023-05-27 12:58] LABS: CREATININE 1.8 mg/dL (0.55-1.3)
[2023-05-27 12:59] LABS: BILIRUBIN,TOTAL 0.8 mg/dL (0.2-1); TOT PROT 4.8 g/dl (6.4-8.2)
[2023-05-27 14:19] VITALS: BMI 27.1
[2023-05-27] MEDS ORDERED: ACETAMINOPHEN 1000 MG/100 ML BAG IVPB PRN (17:52)
[2023-05-27] MEDS: MIDODRINE HCL 5 MG TABLET PO SCH (17:54)
[2023-05-28 09:03] LABS: HEMATOCRIT 27.4 % (32.4-45.2); HEMOGLOBIN 8.8 GM/dL (10.7-15.3); MCHC 32.1 g/dl (32.0-36.0); MEAN CELL VOLUME 84.3 fl (80-96); MEAN PLT VOLUME 8.6 fl (7.5-11.1); PLATELET COUNT 211 10^3/uL (134-434); RBC 3.25 M/mm3 (3.60-5.2); RDW 15.1 % (11.6-15.6); WHITE BLOOD COUNT 11.2 K/mm3 (4.0-10.0)
[2023-05-28 09:25] LABS: POTASSIUM 3.4 mmol/L (3.5-5.1)
[2023-05-28 09:38] LABS: BLOOD UREA NITROGEN 56.9 mg/dL (7-18)
[2023-05-28 09:39] LABS: CALCIUM 9.4 mg/dL (8.5-10.1)
[2023-05-28 09:40] LABS: ALBUMIN 1.6 g/dl (3.4-5.0)
[2023-05-28 09:42] LABS: CREATININE 1.6 mg/dL (0.55-1.3)
[2023-05-28 09:45] LABS: BILIRUBIN,TOTAL 0.5 mg/dL (0.2-1); TOT PROT 4.9 g/dl (6.4-8.2)
[2023-05-28] MEDS ORDERED: MEROPENEM 1 GM VIAL (RESTRICTED TO ID) IVPB ONE (16:03)
[2023-05-28] MEDS: FLUCONAZOLE 100 MG/NS 50 ML IVPB SCH (17:07)
[2023-05-28] MEDS: KCL 10 MEQ IVPB 10 MEQ/100 ML INFUS.BAG IVPB SCH (18:30)
[2023-05-28] MEDS: AMINO ACIDS 4.25%/D5W 1,000 ML IV SCH (19:45)
[2023-05-29] MEDS: LEVOTHYROXINE SODIUM 100 MCG 5 ML VIAL IVPUSH SCH (09:21)
[2023-05-29 09:22] LABS: HEMATOCRIT 26.9 % (32.4-45.2); HEMOGLOBIN 8.5 GM/dL (10.7-15.3); MCH 26.9 pg (25.7-33.7); MCHC 31.6 g/dl (32.0-36.0); MEAN CELL VOLUME 85.2 fl (80-96); MEAN PLT VOLUME 8.8 fl (7.5-11.1); PLATELET COUNT 238 10^3/uL (134-434); RBC 3.16 M/mm3 (3.60-5.2); RDW 15.2 % (11.6-15.6); WHITE BLOOD COUNT 12.2 K/mm3 (4.0-10.0)
[2023-05-29 09:47] LABS: POTASSIUM 3.6 mmol/L (3.5-5.1)
[2023-05-29 10:01] LABS: ALBUMIN 1.6 g/dl (3.4-5.0); BLOOD UREA NITROGEN 61.8 mg/dL (7-18)
[2023-05-29 10:04] LABS: CREATININE 1.4 mg/dL (0.55-1.3)
[2023-05-29 10:05] LABS: BILIRUBIN,TOTAL 0.4 mg/dL (0.2-1)
[2023-05-29 10:06] LABS: TOT PROT 4.9 g/dl (6.4-8.2)
[2023-05-31 09:43] LABS: HEMOGLOBIN 9.6 GM/dL (10.7-15.3); MCH 26.2 pg (25.7-33.7); MCHC 30.9 g/dl (32.0-36.0); MEAN CELL VOLUME 84.8 fl (80-96); MEAN PLT VOLUME 8.6 fl (7.5-11.1); PLATELET COUNT 305 10^3/uL (134-434); RBC 3.65 M/mm3 (3.60-5.2); RDW 15.4 % (11.6-15.6); WHITE BLOOD COUNT 13.2 K/mm3 (4.0-10.0)
[2023-05-31 10:10] LABS: POTASSIUM 3.5 mmol/L (3.5-5.1)
[2023-05-31 10:14] LABS: ALBUMIN 1.7 g/dl (3.4-5.0); BLOOD UREA NITROGEN 70.6 mg/dL (7-18); CALCIUM 10.1 mg/dL (8.5-10.1)
[2023-05-31 10:15] LABS: CREATININE 1.2 mg/dL (0.55-1.3)
[2023-05-31 10:17] LABS: BILIRUBIN,TOTAL 0.5 mg/dL (0.2-1); TOT PROT 5.2 g/dl (6.4-8.2)
[2023-05-31] MEDS: LEVOTHYROXINE SODIUM 100 MCG 5 ML VIAL IVPUSH SCH (11:24)
[2023-05-31 12:19] LABS: ANISOCYTOSIS 0; HELMET CELLS 0; HOWELL-JOLLY BODIES 0; MACROCYTOSIS 0; OVALOCYTE 0; ROULEAU 0; SICKELED CELLS 0; TARGET CELLS 0; TEAR DROP CELLS 0; TOXIC GRANULATION 0
[2023-05-31] MEDS ORDERED: morphine SULFATE IMMEDIATE RELEASE 30 MG TAB PO PRN (14:21)
[2023-05-31] MEDS: ACETAMINOPHEN 1000 MG/100 ML BAG IVPB PRN (15:33)
[2023-06-01] MEDS ORDERED: DEXTROSE 50%-WATER 25 GM/50 ML DISP.SYRIN ONE (06:34)
[2023-06-01] MEDS: DEXTROSE 50%-WATER 25 GM/50 ML DISP.SYRIN IVPUSH ONE (06:40)
[2023-06-01] MEDS: FLUCONAZOLE 100 MG/NS 50 ML IVPB SCH (15:25)
[2023-06-01] MEDS: MEROPENEM 1 GM in DEXTROSE 5%-WATER 100 ML IVPB SCH (15:35)
[2023-06-01] MEDS: HYDROmorphone HCl 2 MG/ML VIAL IVPB PRN (17:46)
[2023-06-02] MEDS: oxyCODONE HCL 5 MG TABLET PO PRN (20:14)
[2023-06-04 15:39] VITALS: RESP 18
[2023-06-06] MEDS: FAMOTIDINE 20 MG TABLET PO SCH (09:48)
[2023-06-06 10:21] LABS: HEMATOCRIT 23.8 % (32.4-45.2); HEMOGLOBIN 7.4 GM/dL (10.7-15.3); MCH 26.3 pg (25.7-33.7); MCHC 31.3 g/dl (32.0-36.0); MEAN CELL VOLUME 84.2 fl (80-96); MEAN PLT VOLUME 8.4 fl (7.5-11.1); PLATELET COUNT 377 10^3/uL (134-434); RBC 2.82 M/mm3 (3.60-5.2); RDW 15.3 % (11.6-15.6); WHITE BLOOD COUNT 16.7 K/mm3 (4.0-10.0)
[2023-06-06 10:50] LABS: POTASSIUM 3.5 mmol/L (3.5-5.1)
[2023-06-06 10:55] LABS: ALBUMIN 1.7 g/dl (3.4-5.0); CALCIUM 11.5 mg/dL (8.5-10.1)
[2023-06-06 10:57] LABS: BLOOD UREA NITROGEN 65.1 mg/dL (7-18)
[2023-06-06 11:00] LABS: BILIRUBIN,TOTAL 0.4 mg/dL (0.2-1); CREATININE 1.3 mg/dL (0.55-1.3)
[2023-06-06 11:02] LABS: TOT PROT 5.1 g/dl (6.4-8.2)
[2023-06-07] MEDS: LEVOTHYROXINE NA 75 MCG TABLET (FP) PO SCH (06:31)
[2023-06-07 09:26] LABS: HEMATOCRIT 23.2 % (32.4-45.2); HEMOGLOBIN 7.2 GM/dL (10.7-15.3); MCH 25.8 pg (25.7-33.7); MCHC 30.9 g/dl (32.0-36.0); MEAN CELL VOLUME 83.6 fl (80-96); MEAN PLT VOLUME 8.6 fl (7.5-11.1); PLATELET COUNT 360 10^3/uL (134-434); RBC 2.78 M/mm3 (3.60-5.2); RDW 15.1 % (11.6-15.6); WHITE BLOOD COUNT 11.6 K/mm3 (4.0-10.0)
[2023-06-07 09:51] LABS: POTASSIUM 3.7 mmol/L (3.5-5.1)
[2023-06-07 10:00] LABS: ALBUMIN 1.7 g/dl (3.4-5.0); CALCIUM 11.2 mg/dL (8.5-10.1)
[2023-06-07 10:01] LABS: BLOOD UREA NITROGEN 59.4 mg/dL (7-18)
[2023-06-07 10:03] LABS: CREATININE 1.2 mg/dL (0.55-1.3)
[2023-06-07 10:05] LABS: BILIRUBIN,TOTAL 0.4 mg/dL (0.2-1); TOT PROT 4.9 g/dl (6.4-8.2)
[2023-06-07] MEDS ORDERED: FENTANYL PATCH WASTE TD PRN (11:25)
[2023-06-07] MEDS: fentaNYL 12mcg/hr PATCH.TD72 TD SCH (11:46)
[2023-06-08] MEDS: DEXTROSE 50%-WATER 25 GM/50 ML DISP.SYRIN IVPUSH ONE (12:43)
[2023-06-08 22:59] VITALS: TEMP 97.5
[2023-06-09] MEDS: oxyCODONE HCL 5 MG TABLET PO PRN (12:00)
[2023-06-09 12:40] VITALS: BP 119/67; PULSE 75
== END 2023-06-09 12:48 | DRG 356 ==
LOC: JASU-SURG 04:05 → J2C 18:21 → JASU-SURG 18:33 → JICU 20:09 → J8W 05-22 16:56
PROVIDERS: ADMIT Internal Medicine; ATTEND Family Medicine
PROC: 30233N1 Transfusion of Nonautologous Red Blood Cells into Peripheral Vein, Percutaneous Approach (ICD-10-PCS; 2023-05-18)
PROC: 0D9W30Z Drainage of Peritoneum with Drainage Device, Percutaneous Approach (ICD-10-PCS; 2023-05-18)
PROC: 0FT40ZZ Resection of Gallbladder, Open Approach (ICD-10-PCS; principal; 2023-05-18 10:30)
PROC: 0JQ80ZZ Repair Abdomen Subcutaneous Tissue and Fascia, Open Approach (ICD-10-PCS; 2023-05-25)
PROC: 3E10X8Z Irrigation of Skin and Mucous Membranes using Irrigating Substance (ICD-10-PCS; 2023-05-25)
PROC: 0W2GX0Z Change Drainage Device in Peritoneal Cavity, External Approach (ICD-10-PCS; 2023-05-25)
DX: C78.89 Secondary malignant neoplasm of other digestive organs (principal); T81.19XA Other postprocedural shock, initial encounter; D62 Acute posthemorrhagic anemia; I24.89 Other forms of acute ischemic heart disease; N17.9 Acute kidney failure, unspecified; L76.32 Postprocedural hematoma of skin and subcutaneous tissue following other procedure; T81.42XA Infection following a procedure, deep incisional surgical site, initial encounter; T81.32XA Disruption of internal operation (surgical) wound, not elsewhere classified, initial encounter; I48.92 Unspecified atrial flutter; C78.6 Secondary malignant neoplasm of retroperitoneum and peritoneum; K81.1 Chronic cholecystitis; K21.9 Gastro-esophageal reflux disease without esophagitis; I12.9 Hypertensive chronic kidney disease with stage 1 through stage 4 chronic kidney disease, or unspecified chronic kidney disease; E11.22 Type 2 diabetes mellitus with diabetic chronic kidney disease; N18.9 Chronic kidney disease, unspecified; I48.91 Unspecified atrial fibrillation; I45.81 Long QT syndrome; F03.90 Unspecified dementia, unspecified severity, without behavioral disturbance, psychotic disturbance, mood disturbance, and anxiety; D50.9 Iron deficiency anemia, unspecified; E03.9 Hypothyroidism, unspecified; R11.2 Nausea with vomiting, unspecified; E78.5 Hyperlipidemia, unspecified; R77.8 Other specified abnormalities of plasma proteins; B96.20 Unspecified Escherichia coli [E. coli] as the cause of diseases classified elsewhere; B95.2 Enterococcus as the cause of diseases classified elsewhere; B96.4 Proteus (mirabilis) (morganii) as the cause of diseases classified elsewhere; Y83.8 Other surgical procedures as the cause of abnormal reaction of the patient, or of later complication, without mention of misadventure at the time of the procedure; Z53.31 Laparoscopic surgical procedure converted to open procedure; Z85.038 Personal history of other malignant neoplasm of large intestine; Z93.3 Colostomy status
CPT/HCPCS: 0241U-QW; 36415; 36430; 71045-TC-FY; 74018-TC-FY; 74176-TC; 76775-TC; 80048; 80053; 80076; 82550; 82553; 82570; 82962; 83735; 84100; 84156; 84300; 84484; 85025; 85027; 85610; 85730; 86140; 86850; 86900; 86901; 86922; 87070; 87075; 87076; 87102; 87186; 87205; 87210; 88108; 88305-TC; 88307-TC; 88341-TC; 88342-TC; 93005; 93010; 94760; 97161-GP; J0131; J1644; J3490; P9038; P9058

== ENCOUNTER 2023-06-11 18:28 | Inpatient (IN) | payer OTHER ==
[2023-06-11] MEDS ORDERED: ACETAMINOPHEN INJECTION 100 ML IVPB ONE (20:18)
[2023-06-11] MEDS ORDERED: MEROPENEM 1 GM VIAL (RESTRICTED TO ID) IVPB ONE (20:18)
[2023-06-11] MEDS ORDERED: VANCOMYCIN 1 GRAM (PRE-DOCKED) 1,000 MG/250 ML BAG IVPB ONE (20:18)
[2023-06-11 20:23] LABS: VENOUS BASE EXCESS -11.3 mmol/L (-2-2); VENOUS O2 SATURATION 42.5 % (70-80); VENOUS PH 7.213 (7.310-7.410)
[2023-06-11 20:36] LABS: CALCIUM 11.4 mg/dL (8.5-10.1)
[2023-06-11 20:37] LABS: BLOOD UREA NITROGEN 51.2 mg/dL (7-18)
[2023-06-11 20:39] LABS: EOS % 0.1 % (0-4.5); HEMATOCRIT 29.3 % (32.4-45.2); HEMOGLOBIN 9.1 GM/dL (10.7-15.3); LYMPH % 3.2 % (8-40); MCH 26.2 pg (25.7-33.7); MCHC 31.2 g/dl (32.0-36.0); MEAN CELL VOLUME 83.9 fl (80-96); MEAN PLT VOLUME 9.1 fl (7.5-11.1); MONO % 1.6 % (3.8-10.2); NEUT % 95.1 % (42.8-82.8); PLATELET COUNT 303 10^3/uL (134-434); RBC 3.49 M/mm3 (3.60-5.2); RDW 16.4 % (11.6-15.6); WHITE BLOOD COUNT 16.6 K/mm3 (4.0-10.0)
[2023-06-11 20:40] LABS: CREATININE 1.9 mg/dL (0.55-1.3)
[2023-06-11 20:42] LABS: BILIRUBIN,TOTAL 0.6 mg/dL (0.2-1)
[2023-06-11 20:47] LABS: INR 1.09 (0.83-1.09); PROTHROMBIN TIME (PATIENT) 12.6 SEC (9.7-13.0)
[2023-06-11] MEDS: ACETAMINOPHEN 1000 MG/100 ML BAG IVPB ONE (20:49)
[2023-06-11] MEDS: MEROPENEM 1 GM in DEXTROSE 5%-WATER 100 ML IVPB ONE (20:49)
[2023-06-11 20:50] LABS: ACTIVATED PTT 26.2 SECONDS (25.2-36.5)
[2023-06-11 21:12] LABS: EPI CELLS >36 /uL (0-25.1); HYALINE CASTS 2 /uL (0-3.1); URINE APPEARANCE CLOUDY; URINE BACTERIA 653 /uL (0-1359); URINE BILIRUBIN NEGATIVE (NEGATIVE); URINE COLOR YELLOW; URINE GLUCOSE (UA) NEGATIVE (NEGATIVE); URINE KETONE TRACE (NEGATIVE); URINE LEUK ESTERASE 2+ (NEGATIVE); URINE NITRITE NEGATIVE (NEGATIVE); URINE PROTEIN 1+ (NEGATIVE); URINE RBC 54 /uL (0-23.9); URINE UROBILINOGEN 0.2 mg/dL (0.2-1.0); URINE WBC 293 /uL (0-25.8)
[2023-06-11 21:19] LABS: ALBUMIN 2.1 g/dl (3.4-5.0)
[2023-06-11 21:21] LABS: ANISOCYTOSIS 2+; MACROCYTOSIS 0; TARGET CELLS 1+
[2023-06-11] MEDS: VANCOMYCIN 1,000 MG in DEXTROSE 5%-WATER - 250 ML IVPB ONE (21:27)
[2023-06-11] MEDS: SODIUM CHLORIDE 0.9% 500 ML INFUS.BAG IV ONE (23:02)
[2023-06-12] MEDS: DEXTROSE 5%-0.45% SALINE 1,000 ML IV SCH ×2 (08:55→10:39)
[2023-06-12] MEDS ORDERED: FENTANYL PATCH WASTE TD PRN (09:15)
[2023-06-12] MEDS ORDERED: COLLAGENASE CLOSTRIDIUM HIST. 30 GRAMS TUBE TP SCH (10:00)
[2023-06-12] MEDS: METHYL SALICYLATE/MENTHOL OINT 30 GM TUBE TP SCH (10:32)
[2023-06-12] MEDS: fentaNYL 25mcg/hr PATCH.TD72 TD SCH (10:32)
[2023-06-12] MEDS: MEROPENEM 500 MG in DEXTROSE 5%-WATER 100 ML IVPB SCH (10:39)
[2023-06-12] MEDS: ACETAMINOPHEN 1000 MG/100 ML BAG IVPB PRN (11:51)
[2023-06-12 14:29] VITALS: BMI 26.9
[2023-06-12] MEDS: KETOROLAC TROMETHAMINE 30 MG/1 ML VIAL IVPUSH ONE (17:02)
[2023-06-12] MEDS: ENOXAPARIN NA (PORCINE) 80 MG/0.8 ML DISP.SYRIN SQ SCH (20:37)
[2023-06-12] MEDS: VANCOMYCIN/WATER FOR INJ (PEG) 750 MG/150 ML BAG IVPB SCH (23:18)
[2023-06-13] MEDS: ENOXAPARIN NA (PORCINE) 80 MG/0.8 ML DISP.SYRIN SQ SCH (08:13)
[2023-06-13 09:01] LABS: HEMATOCRIT 24.5 % (32.4-45.2); HEMOGLOBIN 7.6 GM/dL (10.7-15.3); MCH 26.1 pg (25.7-33.7); MCHC 30.9 g/dl (32.0-36.0); MEAN CELL VOLUME 84.4 fl (80-96); MEAN PLT VOLUME 9.2 fl (7.5-11.1); PLATELET COUNT 201 10^3/uL (134-434); RBC 2.91 M/mm3 (3.60-5.2); RDW 16.4 % (11.6-15.6)
[2023-06-13 09:21] LABS: POTASSIUM 3.4 mmol/L (3.5-5.1)
[2023-06-13 09:23] LABS: CALCIUM 10.5 mg/dL (8.5-10.1)
[2023-06-13 09:24] LABS: ALBUMIN 1.8 g/dl (3.4-5.0); BLOOD UREA NITROGEN 49.7 mg/dL (7-18)
[2023-06-13 09:29] LABS: BILIRUBIN,TOTAL 0.3 mg/dL (0.2-1); TOT PROT 5.1 g/dl (6.4-8.2)
[2023-06-13 09:52] LABS: ANISOCYTOSIS 2+; MACROCYTOSIS 0
[2023-06-13] MEDS: MEROPENEM 500 MG in DEXTROSE 5%-WATER 100 ML IVPB SCH ×2 (10:13→22:24)
[2023-06-13] MEDS: ACETAMINOPHEN 1000 MG/100 ML BAG IVPB PRN (15:27)
[2023-06-13] MEDS: KCL 10 MEQ IVPB 10 MEQ/100 ML INFUS.BAG IVPB SCH (18:51)
[2023-06-13] MEDS ORDERED: VANCOMYCIN/WATER FOR INJ (PEG) 750 MG/150 ML BAG IVPB SCH (20:00)
[2023-06-13] MEDS ORDERED: VANCOMYCIN 750 MG in DEXTROSE 5%-WATER - 150 ML IVPB SCH (22:00)
[2023-06-14] MEDS ORDERED: FENTANYL PATCH WASTE MC PRN (10:46)
[2023-06-14] MEDS ORDERED: oxyCODONE HCL 5 MG TABLET PO PRN (10:46)
[2023-06-14] MEDS ORDERED: fentaNYL 12mcg/hr PATCH.TD72 TD SCH (11:00)
[2023-06-14] MEDS ORDERED: morphine SULFATE 4 MG/ML VIAL IVPUSH PRN (11:38)
[2023-06-14] MEDS: HYDROmorphone HCl 2 MG/ML VIAL IVPUSH PRN (17:53)
[2023-06-14 21:05] VITALS: RESP 16
[2023-06-14] MEDS: HYDROmorphone HCl 2 MG/ML VIAL IVPB PRN (23:24)
[2023-06-15 11:35] VITALS: BP 95/68; PULSE 69; TEMP 97
== END 2023-06-15 13:40 | disposition expired | DRG 862 ==
LOC: JER 18:28 → JERBED 20:18 → J8W 06-12 02:11
PROVIDERS: ADMIT Internal Medicine; ATTEND Family Medicine
DX: T81.42XA Infection following a procedure, deep incisional surgical site, initial encounter (principal); E43 Unspecified severe protein-calorie malnutrition; C18.9 Malignant neoplasm of colon, unspecified; E87.20 Acidosis, unspecified; T85.638A Leakage of other specified internal prosthetic devices, implants and grafts, initial encounter; I48.92 Unspecified atrial flutter; C78.89 Secondary malignant neoplasm of other digestive organs; Z51.5 Encounter for palliative care; E03.9 Hypothyroidism, unspecified; I12.9 Hypertensive chronic kidney disease with stage 1 through stage 4 chronic kidney disease, or unspecified chronic kidney disease; N18.9 Chronic kidney disease, unspecified; K21.9 Gastro-esophageal reflux disease without esophagitis; Z68.27 Body mass index [BMI] 27.0-27.9, adult; D72.829 Elevated white blood cell count, unspecified; D64.9 Anemia, unspecified; Y83.8 Other surgical procedures as the cause of abnormal reaction of the patient, or of later complication, without mention of misadventure at the time of the procedure; F03.90 Unspecified dementia, unspecified severity, without behavioral disturbance, psychotic disturbance, mood disturbance, and anxiety
CPT/HCPCS: 0241U-QW; 36415; 71045-TC-FY; 74176-TC; 80053; 81003; 82550; 82803; 83605; 84484; 85025; 85610; 85730; 86850; 86900; 86901; 87040; 87086; 87186; 93005; 93010; 99285-25; J0131